=== PATIENT | female | born 1965 | race African-American/Black ===

== ENCOUNTER 2016-06-16 13:44 | Emergency (ER) | payer SELFPAY ==
[~2016-06-16] VITALS: Ht 162.6 cm; Wt 92.7 kg
[~2016-06-16 13:44] MED LIST: AMLO5TAB2 PO; LISI-519 PO; MECL-62 PO
[2016-06-16 13:46] VITALS: BP 145/94; PULSE 98; RESP 20; TEMP 98.4; O2SAT 96
--- NOTE | 2016-06-16 14:28 | PD ---
HPI Chief Complaint: Medication Refill Request Time Seen by Provider: 14:27 Travel History International Travel<30 days: No Contact w/Intl Traveler<30days: No Traveled to known affect area: No History of Present Illness HPI 51-year-old female with a history of hypertension presents to the emergency department requesting a medication refill. Patient states that she has been taking amlodipine and lisinopril for several years now for her high blood pressure and it has controlled her blood pressure well. States that she does not currently have health insurance and does not have a primary care provider. She is here requesting a refill of these medications. She denies any medical complaints. She denies any chest pain, shortness of breath, lightheadedness, dizziness, nausea, vomiting. Denies , she status post hysterectomy. No other complaints. PFSH Past Medical History Anemia: Yes Blood Disorders: No Cancer: No Cardiovascular Problems: Yes Diabetes: No Diminished Hearing: No Endocrine: No Gastrointestinal Disorders: No GERD: Yes Genitourinary: No Hypertension: Yes Immune Disorder: No Implanted Vascular Access Dvce: No Musculoskeletal: No Neurologic: No Psychiatric: No Reproductive: Yes (FIBROIDS) Respiratory: No Immunizations Current: No ?: Not : 0 Past Surgical History Abdominal Surgery: No AICD: No Arteriovenous Shunt: No Cardiac Surgery: No Cholecystectomy: Yes Gynecologic Surgery: Yes (FIBROID UTERUS) Hysterectomy: Yes Insulin Pump: No Joint Replacement: No Pacemaker: No Other Surgery: Yes Social History Alcohol Use: Yes (OCCASSIONALLY) Tobacco Use: Yes (1- 2 CIG PER DAY ) Substance Use: No (DENIES ) Allergies-Medications (Allergen,Severity, Reaction): Coded Allergies: No Known Allergies (Verified , 03/19/16) Reported Meds & Prescriptions Reported Meds & Active Scripts Active Lisinopril 5 Mg Tab 5 Mg PO DAILY Amlodipine (Amlodipine Besylate) 5 Mg Tab 5 Mg PO DAILY Amlodipine (Amlodipine Besylate) 5 Mg Tab 5 Mg PO DAILY Lisinopril 5 Mg Tab 5 Mg PO DAILY Reported Meclizine (Meclizine HCl) 25 Mg Tab 25 Mg PO TID PRN Lisinopril 5 Mg Tab 5 Mg PO DAILY Amlodipine (Amlodipine Besylate) 5 Mg Tab 5 Mg PO DAILY Review of Systems Except as stated in HPI: all other systems reviewed are Neg Physical Exam Narrative GENERAL: Well-nourished and well-developed pleasant female patient in no acute distress who is nontoxic appearing. SKIN: Warm and dry. HEAD: Normocephalic and atraumatic. EYES: No injection, drainage, or hyphema noted. PERRLA. EOMI. ENT: No nasal drainage noted. Oropharynx is clear. NECK: Supple and the trachea is midline. CARDIOVASCULAR: Regular rate and rhythm. RESPIRATORY: Breath sounds are equal bilaterally with no accessory muscle use, wheezing, rhonchi, or crackles. MUSCULOSKELETAL: No obvious deformities, swelling, cyanosis, or ecchymosis is present throughout the upper and lower extremities. NEUROLOGICAL: Awake, alert, and oriented. Normal speech and gait. Cranial nerves are grossly intact. Data Data Last Documented VS Vital Signs Date Time Temp Pulse Resp B/P Pulse Ox O2 Delivery O2 Flow Rate FiO2 06/16/16 13:46 98.4 98 20 145/94 96 Room Air MDM Medical Decision Making Medical Screen Exam Complete: Yes Emergency Medical Condition: Yes Differential Diagnosis Medication refill versus hypertension versus medical clearance Narrative Course 51-year-old female presents to the emergency department requesting medication refills of amlodipine and lisinopril. Patient is afebrile, vital signs are stable. She has only 2 days left of her medications. She takes lisinopril 5 mg daily and amlodipine 5 mg daily. I'll give her a month's worth of her blood pressure medications. Discussed and given outpatient resources for her to get a primary care physician. Patient verbalizes understanding and agreement with treatment plan. Diagnosis Primary Impression: Hypertension Qualified Code: I10 - Essential hypertension Additional Impression: Medication refill Referrals: [facility] Patient Instructions: General Instructions, Hypertension (ED), Medication Refill, ED Additional Instructions: Take medications as prescribed. Follow-up with your Primary Care Physician. Return to the ED for any acute worsening of symptoms. Med/Other Pt SpecificInfo: Prescription(s) given Scripts Lisinopril 5 Mg Tab5 Mg PO DAILY #30 TAB Ref 0 Prov:Diane Riojas MD 06/16/16 Amlodipine 5 Mg Tab5 Mg PO DAILY #30 TAB Ref 0 Prov:Diane Riojas MD 06/16/16 Disposition: 01 DISCHARGE HOME Condition: Stable Sofia Burden Jun 16, 2016 14:28
[2016-06-16] MEDS ORDERED: AMLO5TAB2 PO (14:30)
[2016-06-16] MEDS ORDERED: LISI-519 PO (14:30)
== END 2016-06-16 14:56 | disposition home or self-care (01) ==
LOC: NEPB 13:44
DX: I10 Essential (primary) hypertension (principal); Z76.0 Encounter for issue of repeat prescription; Z72.0 Tobacco use; Z86.2 Personal history of diseases of the blood and blood-forming organs and certain disorders involving the immune mechanism; Z86.79 Personal history of other diseases of the circulatory system; Z87.19 Personal history of other diseases of the digestive system
CPT/HCPCS: 99281

== ENCOUNTER 2016-11-07 11:39 | Inpatient (IN) | payer SELFPAY ==
[2016-11-07] VITALS (8 sets, daily range): BP systolic 126–163; BP diastolic 85–98; PULSE 65–87; RESP 12–20; TEMP 97.3–98.3; O2SAT 96–100
[~2016-11-07] VITALS: Ht 167.6 cm; Wt 92.5 kg
[2016-11-07] MEDS ORDERED: SODIUM CHLORIDE 0.9% FLUSH 10 ML FLUSH IVF PRN (12:00)
[2016-11-07 12:08] LABS: AUTOMATED NEUTROPHIL # 3.2 TH/MM3 (1.8-7.7); BASOPHIL % 0.4 % (0.0-2.0); EOSINOPHIL # 0.2 TH/MM3 (0-0.4); EOSINOPHIL % 3.9 % (0.0-4.0); HEMATOCRIT 37.2 % (35.0-46.0); HEMO FLAGS DIFF FINAL; LYMPH % 35.1 % (9.0-44.0); LYMPHOCYTE # 2.1 TH/MM3 (1.0-4.8); MEAN CELL VOLUME 81.2 FL (80.0-100.0); MEAN CORPUSCULAR HEMOGLOBIN 26.9 PG (27.0-34.0); MEAN CORPUSCULAR HGB CONC 33.2 % (32.0-36.0); MONO % 7.5 % (0.0-8.0); NEUT % 53.1 % (16.0-70.0); PLATELET COUNT 253 TH/MM3 (150-450); RED BLOOD COUNT 4.59 MIL/MM3 (4.00-5.30)
--- NOTE | 2016-11-07 12:12 | RADRPT ---
EXAM DATE/TIME: 11/07/2016 11:46 [facility] COMPARISON: CHEST SINGLE AP, August 29, 2013, 21:20. INDICATIONS : Chest pain today. MEDICAL HISTORY : Hypertension. SURGICAL HISTORY : None. ENCOUNTER: Initial ACUITY: 1 day PAIN SCORE: 7/10 LOCATION: Bilateral chest FINDINGS: Portable AP view of the chest demonstrates a normal-sized cardiac silhouette. No effusion, consolidat ion, or pneumothorax is visualized. The bones and soft tissues demonstrate no acute abnormality. EKG lines overlie the patient. CONCLUSION: No acute cardiopulmonary abnormality is identified. Doug Rivas MD on November 07, 2016 at 12:09 Board Certified Radiologist. This report was verified electronically.
[2016-11-07 12:17] LABS: APTT (PATIENT) 25.2 SEC (24.3-30.1); INTERNATIONAL NORMALIZED RATIO 0.9 RATIO
[2016-11-07 12:40] LABS: ANION GAP 7 MEQ/L (5-15); BICARBONATE 21.6 MEQ/L (21.0-32.0); BLOOD UREA NITROGEN 10 MG/DL (7-18); CHLORIDE 120 MEQ/L (98-107); CREATINE KINASE 61 U/L (26-192); GLOMERULAR FILTRATION RATE 211 ML/MIN (>89); MAGNESIUM 1.3 MG/DL (1.5-2.5); SODIUM (NA) 149 MEQ/L (136-145)
[2016-11-07] MEDS ORDERED: MAGNESIUM SULFATE 1 GM PREMIX 100 ML IV ONE (13:00)
[2016-11-07 13:02] LABS: POTASSIUM 2.3 MEQ/L (3.5-5.1)
[2016-11-07] MEDS ORDERED: POTASSIUM CHLOR 20 MEQ PREMIX 100 ML IV SCH (13:15)
[2016-11-07] MEDS ORDERED: POTASSIUM CHLORIDE 10 MEQ CONTROLLED RELEASE TAB PO ONE (13:15)
--- NOTE | 2016-11-07 13:56 | PD ---
HPI Chief Complaint: Chest Pain Time Seen by Provider: 11:48 Travel History International Travel<30 days: No Contact w/Intl Traveler<30days: No Traveled to known affect area: No History of Present Illness HPI Patient is a 51-year-old female with history of hypertension and tobacco abuse, who presents to emergency room with complaints of chest pain. Patient reports that her chest pain began around 6 AM this morning while she was taking a shower. She reports that chest pain was located to her right breast, reports that pain with a sharp and stabbing sensation with associated diaphoresis. She reports no shortness of breath or nausea or vomiting with her symptoms. Patient was at work when her symptoms worsened, EMS arrived on scene, she was given 1 sublingual nitroglycerin which took away her pain. Patient was also given 160 mg of aspirin. Patient is currently is pain-free at this time with no complaints PFSH Past Medical History Anemia: Yes Blood Disorders: No Cancer: No Cardiovascular Problems: Yes Diabetes: No Diminished Hearing: No Endocrine: No Gastrointestinal Disorders: No GERD: Yes Genitourinary: No Hypertension: Yes Immune Disorder: No Implanted Vascular Access Dvce: No Musculoskeletal: No Neurologic: No Psychiatric: No Reproductive: Yes (FIBROIDS) Respiratory: No Immunizations Current: No Tetanus Vaccination: > 5 Years Influenza Vaccination: No ?: Not : 0 Para: 0 Miscarriage: 0 : 0 Past Surgical History Abdominal Surgery: No AICD: No Arteriovenous Shunt: No Cardiac Surgery: No Cholecystectomy: Yes Gynecologic Surgery: Yes (FIBROID UTERUS) Hysterectomy: Yes Insulin Pump: No Joint Replacement: No Pacemaker: No Other Surgery: Yes Social History Alcohol Use: Yes (OCCASSIONALLY) Tobacco Use: Yes (1- 2 CIG PER DAY ) Substance Use: No Allergies-Medications (Allergen,Severity, Reaction): Coded Allergies: No Known Allergies (Verified , 11/07/16) Reported Meds & Prescriptions Reported Meds & Active Scripts Active Reported Lisinopril 5 Mg Tab 5 Mg PO DAILY Review of Systems General / Constitutional: No: Fever Eyes: No: Visual changes HENT: No: Headaches Cardiovascular: Positive: Chest Pain or Discomfort Respiratory: Positive: Shortness of Breath Gastrointestinal: No: Abdominal Pain Genitourinary: No: Dysuria Musculoskeletal: No: Pain Skin: No Rash Neurologic: No: Weakness Psychiatric: No: Depression Endocrine: No: Polydipsia Hematologic/Lymphatic: No: Easy Bruising Physical Exam Narrative GENERAL: nad, nontoxic SKIN: Focused skin assessment warm/dry. HEAD: Atraumatic. Normocephalic. EYES: Pupils equal and round. No scleral icterus. No injection or drainage. ENT: No nasal bleeding or discharge. Mucous membranes pink and moist. NECK: Trachea midline. No JVD. CARDIOVASCULAR: Regular rate and rhythm. No murmur appreciated. RESPIRATORY: No accessory muscle use. Clear to auscultation. Breath sounds equal bilaterally. GASTROINTESTINAL: Abdomen soft, non-tender, nondistended. Hepatic and splenic margins not palpable. MUSCULOSKELETAL: No obvious deformities. No clubbing. No cyanosis. No edema. NEUROLOGICAL: Awake and alert. No obvious cranial nerve deficits. Motor grossly within normal limits. Normal speech. PSYCHIATRIC: Appropriate mood and affect; insight and judgment normal. Data Data Last Documented VS Vital Signs Date Time Temp Pulse Resp B/P Pulse Ox O2 Delivery O2 Flow Rate FiO2 11/07/16 11:59 20 96 Room Air 11/07/16 11:42 98.3 87 163/95 Orders Electrocardiogram (11/07/16 11:49) Basic Metabolic Panel (Bmp) (11/07/16 11:49) Ckmb (Isoenzyme) Profile (11/07/16 11:49) Complete Blood Count With Diff (11/07/16 11:49) Magnesium (Mg) (11/07/16 11:49) Prothrombin Time / Inr (Pt) (11/07/16 11:49) Act Partial Throm Time (Ptt) (11/07/16 11:49) Troponin I (11/07/16 11:49) Chest, Single Ap (11/07/16 11:49) Ecg Monitoring (11/07/16 11:49) Iv Access Insert/Monitor (11/07/16 11:49) Oximetry (11/07/16 11:49) Sodium Chloride 0.9% Flush (Ns Flush) (11/07/16 12:00) Ed Urine Pregnancytest Poc (11/07/16 11:49) Protein Corrected Calcium(Pcc) (11/07/16 11:55) Magnesium Sulfate 1 Gm Premix (Magnesium (11/07/16 13:00) Potassium Chloride (Kcl) (11/07/16 13:15) Potassium Chlor 20 Meq Premix (Kcl 20 Me (11/07/16 13:15) Basic Metabolic Panel (Bmp) (11/07/16 13:18) Admit Order (Ed Use Only) (11/07/16 13:57) Labs Laboratory Tests Test 11/07/16 11/07/16 11:55 13:29 White Blood Count 6.0 TH/MM3 Red Blood Count 4.59 MIL/MM3 Hemoglobin 12.3 GM/DL Hematocrit 37.2 % Mean Corpuscular Volume 81.2 FL Mean Corpuscular Hemoglobin 26.9 PG Mean Corpuscular Hemoglobin 33.2 % Concent Red Cell Distribution Width 15.0 % Platelet Count 253 TH/MM3 Mean Platelet Volume 8.9 FL Neutrophils (%) (Auto) 53.1 % Lymphocytes (%) (Auto) 35.1 % Monocytes (%) (Auto) 7.5 % Eosinophils (%) (Auto) 3.9 % Basophils (%) (Auto) 0.4 % Neutrophils # (Auto) 3.2 TH/MM3 Lymphocytes # (Auto) 2.1 TH/MM3 Monocytes # (Auto) 0.5 TH/MM3 Eosinophils # (Auto) 0.2 TH/MM3 Basophils # (Auto) 0.0 TH/MM3 CBC Comment DIFF FINAL Differential Comment Prothrombin Time 10.0 SEC Prothromb Time International 0.9 RATIO Ratio Activated Partial 25.2 SEC Thromboplast Time Sodium Level 149 MEQ/L 139 MEQ/L Potassium Level 2.3 MEQ/L 3.4 MEQ/L Chloride Level 120 MEQ/L 106 MEQ/L Carbon Dioxide Level 21.6 MEQ/L 24.9 MEQ/L Anion Gap 7 MEQ/L 8 MEQ/L Blood Urea Nitrogen 10 MG/DL 13 MG/DL Creatinine 0.39 MG/DL 0.68 MG/DL Estimat Glomerular Filtration 211 ML/MIN 111 ML/MIN Rate Random Glucose 85 MG/DL 99 MG/DL Calcium Level 5.9 MG/DL 9.1 MG/DL Protein Corrected Calcium 7.0 MG/DL Magnesium Level 1.3 MG/DL Total Creatine Kinase 61 U/L Troponin I LESS THAN 0.02 NG/ML Total Protein 4.6 GM/DL MDM Medical Decision Making Medical Screen Exam Complete: Yes Emergency Medical Condition: Yes Interpretation(s) EKG [id number]: NSR at 86bpm, qt/qtc: 358/402, t wave inversion I, II, aVL, V3-V6, EKG similar when compared to EKG from 03/19/2016 Vital Signs Date Time Temp Pulse Resp B/P Pulse Ox O2 Delivery O2 Flow Rate FiO2 11/07/16 11:59 20 96 Room Air 11/07/16 11:42 98.3 87 20 163/95 96 Differential Diagnosis ACS, arrhythmia, electrolyte abnormality, muscle skeletal pain Narrative Course Patient is a 51-year-old female who was brought to emergency room by EMS with complaints of chest pain. Patient was having right-sided chest pain which is sharp and stabbing in nature, nonradiating, with associated diaphoresis which began around 6am today. Patient was chest pain-free after 1 sublingual nitroglycerin given by EMS.. Patient with no chest pain at this time. EKG, lab work, x-ray of the chest ordered. Patient was placed on a general ophthalmologist upon arrival to emergency room. Laboratory Tests Test 11/07/16 11:55 White Blood Count 6.0 TH/MM3 (4.0-11.0) Red Blood Count 4.59 MIL/MM3 (4.00-5.30) Hemoglobin 12.3 GM/DL (11.6-15.3) Hematocrit 37.2 % (35.0-46.0) Mean Corpuscular Volume 81.2 FL (80.0-100.0) Mean Corpuscular Hemoglobin 26.9 PG (27.0-34.0) Mean Corpuscular Hemoglobin 33.2 % Concent (32.0-36.0) Red Cell Distribution Width 15.0 % (11.6-17.2) Platelet Count 253 TH/MM3 (150-450) Mean Platelet Volume 8.9 FL (7.0-11.0) Neutrophils (%) (Auto) 53.1 % (16.0-70.0) Lymphocytes (%) (Auto) 35.1 % (9.0-44.0) Monocytes (%) (Auto) 7.5 % (0.0-8.0) Eosinophils (%) (Auto) 3.9 % (0.0-4.0) Basophils (%) (Auto) 0.4 % (0.0-2.0) Neutrophils # (Auto) 3.2 TH/MM3 (1.8-7.7) Lymphocytes # (Auto) 2.1 TH/MM3 (1.0-4.8) Monocytes # (Auto) 0.5 TH/MM3 (0-0.9) Eosinophils # (Auto) 0.2 TH/MM3 (0-0.4) Basophils # (Auto) 0.0 TH/MM3 (0-0.2) CBC Comment DIFF FINAL Differential Comment Prothrombin Time 10.0 SEC (9.8-11.6) Prothromb Time International 0.9 RATIO Ratio Activated Partial 25.2 SEC Thromboplast Time (24.3-30.1) Sodium Level 149 MEQ/L (136-145) Potassium Level 2.3 MEQ/L (3.5-5.1) Chloride Level 120 MEQ/L (98-107) Carbon Dioxide Level 21.6 MEQ/L (21.0-32.0) Anion Gap 7 MEQ/L (5-15) Blood Urea Nitrogen 10 MG/DL (7-18) Creatinine 0.39 MG/DL (0.50-1.00) Estimat Glomerular Filtration 211 ML/MIN Rate (>89) Random Glucose 85 MG/DL (74-106) Calcium Level 5.9 MG/DL (8.5-10.1) Protein Corrected Calcium 7.0 MG/DL (8.5-10.1) Magnesium Level 1.3 MG/DL (1.5-2.5) Total Creatine Kinase 61 U/L (26-192) Troponin I LESS THAN 0.02 NG/ML (0.02-0.05) Total Protein 4.6 GM/DL (6.4-8.2) Last Impressions Chest X-Ray 11/07/16 1149 Signed Impressions: Service Date/Time: Monday, November 07, 2016 11:46 - CONCLUSION: No acute cardiopulmonary abnormality is identified. Doug Rivas MD All labs and all studies reviewed, patient currently chest pain-free at this time, plan to obs to chest pain unit. repeat bmp: potassium 3.4, calcium 9.1 - lab called as initial bmp showed potassium 2.3 and calcium 5.9 which is most likely a lab error Patient was initially admitted to chest pain unit - patient unable to be admitted to chest pain unit given her initial low potassium of 2.3. Will admit to [facility] for obs case reviewed with Dr Nath who accepts pt to service Diagnosis Primary Impression: Chest pain Qualified Code: R07.9 - Chest pain, unspecified type Admitting Information Admitting Physician Requests: Observation Sridevi Webb DO Nov 07, 2016 13:56
[2016-11-07 14:15] LABS: BICARBONATE 24.9 MEQ/L (21.0-32.0); POTASSIUM 3.4 MEQ/L (3.5-5.1)
[2016-11-07] MEDS ORDERED: NITROGLYCERIN 0.3 MG SL 100 TABS/BTL SL PRN (15:15)
[2016-11-07] MEDS ORDERED: CARVEDILOL 3.125 MG TAB PO ONE (15:15)
[2016-11-07] MEDS ORDERED: SODIUM CHLORIDE 0.9% FLUSH 10 ML FLUSH IV FLUSH PRN (15:15)
[2016-11-07 17:10] LABS: CREATINE KINASE 82 U/L (26-192)
[2016-11-07] MEDS: CARVEDILOL 3.125 MG TAB PO SCH (19:54)
[2016-11-07] MEDS: SODIUM CHLORIDE 0.9% FLUSH 10 ML FLUSH IV FLUSH SCH (19:55)
--- NOTE | 2016-11-07 23:57 | HHI.HP ---
HPI Service [facility] Primary Care Physician No Primary Care Physician Admission Diagnosis Chest pain Diagnoses: Travel History International Travel<30 Days: No Contact w/Intl Traveler <30 Da: No Traveled to Known Affected Are: No History of Present Illness patient seen today around 4 PM. 51-year-old female with history of hypertension,, uterine fibroids, chronic smoking, who presents with acute onset sharp, intermittent, nonradiating right- sided chest pain. She does report some diaphoresis which has resolved. She denies any nausea or vomiting. Denies any shortness of breath. Review of Systems performed and negative except for HPI and past medical history. Past Family Social History Past Medical History Hypertension Uterine fibroids Reports GERD but not on medication. Past Surgical History Hysterectomy Fibroid tumor removal. Bilateral hand surgery. Reported Medications lisinopril 20 mg once daily. Allergies: Coded Allergies: No Known Allergies (Verified , 11/07/16) Family History Mother from colon cancer at age 54. Father estranged Social History Patient has smoked one fourth pack of cigarettes per day the past 20 years. Denies any alcohol. Denies any illicit drugs. Physical Exam Vital Signs Vital Signs Date Time Temp Pulse Resp B/P Pulse Ox O2 Delivery O2 Flow Rate FiO2 11/07/16 20:48 76 11/07/16 19:29 97.9 66 18 126/85 100 11/07/16 18:34 65 11/07/16 16:39 97.3 69 12 147/95 99 11/07/16 15:55 98 21 11/07/16 14:00 65 18 151/98 96 Room Air 11/07/16 11:59 20 96 Room Air 11/07/16 11:42 98.3 87 20 163/95 96 Physical Exam GENERAL: This is a well-nourished, well-developed patient, in no apparent distress.alert and oriented 3. SKIN: No rashes, ecchymoses or lesions. Cool and dry. HEAD: Atraumatic. Normocephalic. No temporal or scalp tenderness. EYES: Pupils equal round and reactive. Extraocular motions intact. No scleral icterus. No injection or drainage. ENT: Nose without bleeding, purulent drainage or septal hematoma. Throat without erythema, tonsillar hypertrophy or exudate. Uvula midline. Airway patent. NECK: Trachea midline. No JVD or lymphadenopathy. Supple, nontender, no meningeal signs. CARDIOVASCULAR: Regular rate and rhythm without murmurs, gallops, or rubs. RESPIRATORY: Clear to auscultation. Breath sounds equal bilaterally. No wheezes , rales, or rhonchi. GASTROINTESTINAL: Abdomen soft, non-tender, nondistended. No hepato-splenomegaly , or palpable masses. No guarding. MUSCULOSKELETAL: Extremities without clubbing, cyanosis, or edema. No joint tenderness, effusion, or edema noted. No calf tenderness. Negative Homans sign bilaterally. NEUROLOGICAL: Awake and alert. Cranial nerves II through XII intact. Motor and sensory grossly within normal limits. Five out of 5 muscle strength in all muscle groups. Normal speech. Laboratory Laboratory Tests Test 11/07/16 11/07/16 11/07/16 11:55 13:29 16:00 White Blood Count 6.0 Red Blood Count 4.59 Hemoglobin 12.3 Hematocrit 37.2 Mean Corpuscular Volume 81.2 Mean Corpuscular Hemoglobin 26.9 Mean Corpuscular Hemoglobin 33.2 Concent Red Cell Distribution Width 15.0 Platelet Count 253 Mean Platelet Volume 8.9 Neutrophils (%) (Auto) 53.1 Lymphocytes (%) (Auto) 35.1 Monocytes (%) (Auto) 7.5 Eosinophils (%) (Auto) 3.9 Basophils (%) (Auto) 0.4 Neutrophils # (Auto) 3.2 Lymphocytes # (Auto) 2.1 Monocytes # (Auto) 0.5 Eosinophils # (Auto) 0.2 Basophils # (Auto) 0.0 CBC Comment DIFF FINAL Differential Comment Prothrombin Time 10.0 Prothromb Time International 0.9 Ratio Activated Partial 25.2 Thromboplast Time Sodium Level 149 139 Potassium Level 2.3 3.4 Chloride Level 120 106 Carbon Dioxide Level 21.6 24.9 Anion Gap 7 8 Blood Urea Nitrogen 10 13 Creatinine 0.39 0.68 Estimat Glomerular Filtration 211 111 Rate Random Glucose 85 99 Calcium Level 5.9 9.1 Protein Corrected Calcium 7.0 Magnesium Level 1.3 Total Creatine Kinase 61 82 Troponin I LESS THAN 0.02 LESS THAN 0.02 Total Protein 4.6 Result Diagram: 11/07/16 1155 11/07/16 1329 Imaging Last Impressions Chest X-Ray 11/07/16 1149 Signed Impressions: Service Date/Time: Monday, November 07, 2016 11:46 - CONCLUSION: No acute cardiopulmonary abnormality is identified. Doug Rivas MD Assessment and Plan Assessment and Plan //Acute chest pain. Atypical but with risk factors of smoking, hypertension. -Troponin negative. Chest x-ray negative on admission. -EKG indicates left ventricular hypertrophy Trend EKGs and troponins. -Echocardiogram, NPO midnight, stress test in the morning. //Hypertension. Blood pressure in the 160 systolic. Initially tachycardic in the 80s, so Coreg was added we'll consider adding back home lisinopril tomorrow. //Family history of colon cancer in mother age 54. Patient advised to follow- up with primary care to obtain screening colonoscopy due to her increased risk of colon cancer. Patient conveys understanding. //Tobacco abuse. Cessation counseling provided. Cessation strongly advised. //Hypokalemia. Discussed extensively with ER physician. Repeat after 2 hours as nearly normalized. This is certainly a lab error. Suspect contamination with normal saline from IV. Follow-up tomorrow. //Prophylaxis. SCDs. Code Status full code Discussed Condition With patient, nurse, ED physician. Cristhian Nath MD Nov 07, 2016 23:57
[2016-11-08] VITALS (9 sets, daily range): BP systolic 116–150; BP diastolic 75–99; PULSE 63–69; RESP 16–20; TEMP 97.2–98.6; O2SAT 97–100
[2016-11-08 00:16] LABS: CREATINE KINASE 78 U/L (26-192)
[2016-11-08 07:30] LABS: BASOPHIL % 0.8 % (0.0-2.0); EOSINOPHIL # 0.2 TH/MM3 (0-0.4); EOSINOPHIL % 4.3 % (0.0-4.0); HEMATOCRIT 35.8 % (35.0-46.0); HEMO FLAGS DIFF FINAL; LYMPH % 42.9 % (9.0-44.0); MEAN CELL VOLUME 81.6 FL (80.0-100.0); MEAN CORPUSCULAR HEMOGLOBIN 27.3 PG (27.0-34.0); MEAN CORPUSCULAR HGB CONC 33.4 % (32.0-36.0); MONO % 8.2 % (0.0-8.0); NEUT % 43.8 % (16.0-70.0); PLATELET COUNT 261 TH/MM3 (150-450); RED BLOOD COUNT 4.38 MIL/MM3 (4.00-5.30); RED CELL DISTRIBUTION WIDTH 14.9 % (11.6-17.2); WHITE BLOOD COUNT 4.6 TH/MM3 (4.0-11.0)
--- NOTE | 2016-11-08 07:55 | HHI.PR ---
Subjective Remarks Follow-up for chest pain. Patient states that when she was getting ready for work yesterday morning she began having sharp right-sided chest pain. She states the pain came and went lasting for a few minutes of the time all day. The pain did not radiate. She denies any associated shortness of breath, nausea , diaphoresis. She states the pain was relieved with nitroglycerin and has not recurred overnight. She does state that she was sick to her stomach last week and had associated lower extremity weakness. She denies any vomiting or diarrhea. She denies any exacerbation of the pain with food. Objective Vitals Vital Signs Date Time Temp Pulse Resp B/P Pulse Ox O2 Delivery O2 Flow Rate FiO2 11/08/16 07:12 97.6 65 18 134/92 11/08/16 05:00 98.6 66 18 132/79 98 11/08/16 04:19 100 21 11/08/16 00:23 69 11/08/16 00:06 97.8 68 18 116/75 98 11/07/16 20:48 76 11/07/16 19:29 97.9 66 18 126/85 100 11/07/16 18:34 65 11/07/16 16:39 97.3 69 12 147/95 99 11/07/16 15:55 98 21 11/07/16 14:00 65 18 151/98 96 Room Air 11/07/16 11:59 20 96 Room Air 11/07/16 11:42 98.3 87 20 163/95 96 Result Diagram: 11/08/16 0607 11/07/16 1329 Imaging Last Impressions Chest X-Ray 11/07/16 1149 Signed Impressions: Service Date/Time: Monday, November 07, 2016 11:46 - CONCLUSION: No acute cardiopulmonary abnormality is identified. Doug Rivas MD Objective Remarks GENERAL: Well-developed well-nourished. In no acute distress. SKIN: Warm and dry. No lesions noted. HEENT: Normocephalic. Pupils equal and round. Mucous membranes pink and moist. CARDIOVASCULAR: Regular rate and rhythm. No murmur appreciated. No chest wall TTP. RESPIRATORY: No accessory muscle use. Clear to auscultation. Breath sounds equal bilaterally. GASTROINTESTINAL: Abdomen soft, nondistended. Significant epigastric and right upper quadrant TTP. Positive Santiago sign. MUSCULOSKELETAL: No obvious deformities. No clubbing or cyanosis. No edema. NEUROLOGICAL: Awake and alert. No focal neurological deficits. Moves upper and lower extremities spontaneously. Normal speech. PSYCHIATRIC: Appropriate mood and affect; insight and judgment normal. A/P Assessment and Plan //Acute chest pain. Atypical but with risk factors of smoking, hypertension. -Serial Troponin negative. Chest x-ray negative on admission. -EKG indicates left ventricular hypertrophy -Cardiology consulted, plan for Echocardiogram, stress test -Started on aspirin and beta hao -Lipid profile with elevated LDL, consider statin when LFTs improve //Abdominal pain. Right upper quadrant and epigastric tenderness. With atypical chest pain as above, consider cholecystitis or GERD. -Gallbladder ultrasound. Further specialist (GI vs GS) consult if indicated. -PPI //Hypertension. Blood pressure currently controlled. Lisinopril changed carvedilol due to borderline tachycardia. Consider adding back home lisinopril pending stress test results. //Family history of colon cancer in mother age 54. Patient advised to follow- up with primary care to obtain screening colonoscopy due to her increased risk of colon cancer. Patient conveys understanding. //Tobacco abuse. Cessation counseling. //Hypokalemia. Repeat potassium after 2 hours was nearly normalized. This is certainly a lab error. Suspect contamination with normal saline from IV. Follow -up BMP today pending. //Prophylaxis. SCDs. Discharge Planning Follow-up results of cardiac workup and cardiology recommendations. Follow-up gallbladder ultrasound. 1500 stress test shows moderate redistribution at the apex. Gallbladder ultrasound showed old malfunctioning bile duct stent. Discussed with Dr. Bailey, cardiology is recommending cardiac catheterization in the morning. Discuss with gastroenterology, ERCP for stent removal when cleared by cardiology. Nothing by mouth after midnight per cardiology. Full liquids per gastroenterology. Plan of care discussed with the patient and her brother at bedside, agreeable to proceed, all questions answered to the best of my ability. Admit to inpatient. Mirza Elizondo Nov 08, 2016 07:55
[2016-11-08 07:56] LABS: BICARBONATE 30.3 MEQ/L (21.0-32.0); MAGNESIUM 2.4 MG/DL (1.5-2.5); POTASSIUM 3.7 MEQ/L (3.5-5.1)
[2016-11-08 07:59] LABS: HDL CHOLESTEROL 85.1 MG/DL (40.0-60.0)
[2016-11-08] MEDS: ASPIRIN EC 81 MG TABEC PO SCH (08:44)
[2016-11-08] MEDS: SODIUM CHLORIDE 0.9% FLUSH 10 ML FLUSH IV FLUSH SCH ×2 (08:44→20:29)
[2016-11-08] MEDS: PANTOPRAZOLE SOD 40 MG DELAYED RELEASE TAB PO SCH (08:44)
[2016-11-08] MEDS: CARVEDILOL 3.125 MG TAB PO SCH ×2 (08:44→20:24)
--- NOTE | 2016-11-08 09:22 | RADRPT ---
EXAM DATE/TIME: 11/08/2016 08:20 [facility] COMPARISON: GI LAB ERCP, September 29, 2009, 13:04. INDICATIONS : Abdominal pain. MEDICAL HISTORY : Hypertension. Uterine fibroids. SURGICAL HISTORY : Hysterectomy. Bilateral hand surgery. Fibroid removal. ENCOUNTER: Subsequent ACUITY: > 1 year PAIN SCORE: 8/10 LOCATION: Right upper quadrant MEASUREMENTS: LIVER: 13.4 cm length COMMON DUCT: 11 mm RIGHT KIDNEY: 9.9 x 4.2 x 4.7 cm FINDINGS: LIVER: Mild diffuse heterogeneous echotexture with slight intrahepatic ductal dilatation. COMMON DUCT: There is a stent in the common bile duct. This is consistent with remote ERCP report although patient reportedly denies this history. There is prominence of the extrahepatic duct measur ing up to 11 mm. GALLBLADDER: Gallbladder is not visualized and patient denies history of cholecystectomy. Co incidentally, gallbladder was also not visualized in remote ERCP report. PANCREAS: Largely obscured by bowel gas but appears unremarkable in its visualized portions. RIGHT KIDNEY: No evidence of hydronephrosis, stone, or mass. CONCLUSION: 1. Common bile duct stent in place consistent with GI ERCP report of 2009 although patient denies thi s history. There is associated mild intrahepatic and common bile duct distention to 11 mm. Although t his may be chronic in etiology, stent malfunction should be considered. 2. Gallbladder is not visualized. This is also consistent with ERCP report of 2009 although patient d enies history of cholecystectomy. In the absence of cholecystectomy, differential considerations incl ude a contracted small gallbladder versus gallbladder agenesis which is very rare. Rolf Ren MD on November 08, 2016 at 9:11 Board Certified Radiologist. This report was verified electronically.
[2016-11-08] MEDS ORDERED: REGADENOSON INJ 0.4 MG/5 ML SYR ONE (10:05)
--- NOTE | 2016-11-08 10:59 | MB ---
cc: ESTEBAN VELARDE DO DATE OF CONSULTATION 11/07/2016 REASON FOR CONSULTATION Chest pain HISTORY OF PRESENT ILLNESS Vivian Osorio is a pleasant 51-year-old female who presented to [facility] on November 07, 2016 due to chest pain. She states that the pain started around 06:00 a.m. this morning. She went on to take a shower and reports that she still had some chest pain so her brother brought her into the emergency room. She states that the chest pain is located over her right breast and is sharp and stabbing in nature. She denies shortness of breath, nausea or vomiting with the symptoms. She states that she has not had these symptoms first. She did state that while she was at work, the symptoms got slightly worse. PAST MEDICAL HISTORY 1. Gastroesophageal reflux disease 2. Hypertension 3. Fibroids PAST SURGICAL HISTORY 1. Cholecystectomy 2. Hysterectomy ALLERGIES NO KNOWN DRUG ALLERGIES. MEDICATIONS Lisinopril 5 mg daily FAMILY HISTORY Denies premature coronary artery disease or sudden cardiac within the family. SOCIAL HISTORY The patient occasionally drinks. Denies drug abuse. Does smoke one to two cigarettes per day. REVIEW OF SYSTEMS 14-systems were reviewed including osteopathic pertinent positives and negatives as above, otherwise negative. PHYSICAL EXAMINATION VITAL SIGNS: Temperature 97.9, heart rate 76, blood pressure 126/85, respirations 18, pulse ox 100% on room air. GENERAL: The patient appears well in no acute distress, alert, awake and oriented x3. HEAD, EYES, EARS, NOSE, AND THROAT: Extraocular muscles intact. Mucous membranes moist. NECK: Supple. JVD at 45 degrees. No carotid bruits heard bilaterally. Carotid upstroke is brisk in nature. HEART: Regular rate and rhythm. Positive first and second heart sounds with no murmurs, gallops or rubs. PMI is nondisplaced. LUNGS: Clear to auscultation bilaterally. No wheezes, rales or rhonchi. ABDOMEN: Soft, nontender and nondistended. No organomegaly noted. EXTREMITIES: Show no clubbing, cyanosis or edema. Femoral and distal pulses intact bilaterally. NEUROLOGIC: No focal deficits. SKIN: Warm, dry and intact. OSTEOPATHIC: No kyphoscoliosis, lordosis or paraspinal tender points. LABORATORY FINDINGS Hemoglobin 12.3, hematocrit 37.2, platelets 253. Potassium 3.4, BUN 13, creatinine 0.68. Troponin negative x2. Electrocardiogram (November 07, 2016 at 1819) sinus rhythm, LVH with secondary ST-T wave changes. No significant change from March 19, 2016. IMPRESSIONS 1. Atypical chest pain. 2. Abnormal EKG with ST-T wave changes most likely due to LVH. 3. History of hypertension. 4. History of tobacco abuse. RECOMMENDATIONS 1. Ms. Osorio presented with atypical chest pain and I do not feel that this is most likely due to coronary insufficiency. With her extremely abnormal EKG and co-morbidities, I feel that coronary insufficiency should be ruled out with a pharmacologic nuclear stress test. 2. We will check a 2-D echo to look at her overall left ventricular function, cardiac structure and possible valvulopathies. 3. If stress testing is negative, then she can be discharged home for further management as an outpatient. 4. I spoke to her for greater than three minutes about tobacco cessation which she says that she is working to quit at this time. Thank you for allowing me to see Vivian Osorio. If there are any questions, please do not hesitate to call. Esteban Velarde DO VGP/DJL /10:47 PM /11:10 AM
--- NOTE | 2016-11-08 12:26 | PD.CARD.PN ---
Subjective Subjective Remarks No chest pain, no shortness of breath Abdominal pain this morning Objective Medications Current Medications Medications (Trade) Dose Ordered Sig/Taran Route Start Time Stop Time Status Last Admin (NS Flush) 2 ml UNSCH PRN IV FLUSH 11/07/16 15:15 (NS Flush) 2 ml BID IV FLUSH 11/07/16 21:00 11/08/16 08:44 (Coreg) 3.125 mg Q12HR PO 11/07/16 21:00 11/08/16 08:44 (Ecotrin Ec) 81 mg DAILY PO 11/08/16 09:00 11/08/16 08:44 (Nitrostat Sl) 0.3 mg Q5M PRN SL 11/07/16 15:15 (Protonix) 40 mg DAILY PO 11/08/16 09:00 11/08/16 08:44 Vital Signs / I&O Vital Signs Date Time Temp Pulse Resp B/P Pulse Ox O2 Delivery O2 Flow Rate FiO2 11/08/16 11:24 98.1 68 18 127/89 98 11/08/16 07:12 97.6 65 18 134/92 11/08/16 05:00 98.6 66 18 132/79 98 11/08/16 04:19 100 21 11/08/16 00:23 69 11/08/16 00:06 97.8 68 18 116/75 98 11/07/16 20:48 76 11/07/16 19:29 97.9 66 18 126/85 100 11/07/16 18:34 65 11/07/16 16:39 97.3 69 12 147/95 99 11/07/16 15:55 98 21 11/07/16 14:00 65 18 151/98 96 Room Air Physical Exam GENERAL: NAD, AAOx3 SKIN: Warm and dry. HEAD: Atraumatic. Normocephalic. EYES: Pupils equal and round. No scleral icterus. No injection or drainage. ENT: No nasal bleeding or discharge. Mucous membranes pink and moist. NECK: Trachea midline. No JVD. CARDIOVASCULAR: Regular rate and rhythm. RESPIRATORY: No accessory muscle use. Clear to auscultation. Breath sounds equal bilaterally. GASTROINTESTINAL: Abdomen soft, mildly tender RUQ, nondistended. Hepatic and splenic margins not palpable. MUSCULOSKELETAL: Extremities without clubbing, cyanosis, or edema. No obvious deformities. NEUROLOGICAL: Awake and alert. No obvious cranial nerve deficits. Motor grossly within normal limits. Five out of 5 muscle strength in the arms and legs. Normal speech. PSYCHIATRIC: Appropriate mood and affect; insight and judgment normal. Laboratory Laboratory Tests Test 11/07/16 11/07/16 11/07/16 11/08/16 13:29 16:00 23:27 06:07 Sodium Level 139 MEQ/L 143 MEQ/L Potassium Level 3.4 MEQ/L 3.7 MEQ/L Chloride Level 106 MEQ/L 106 MEQ/L Carbon Dioxide Level 24.9 MEQ/L 30.3 MEQ/L Anion Gap 8 MEQ/L 7 MEQ/L Blood Urea Nitrogen 13 MG/DL 9 MG/DL Creatinine 0.68 MG/DL 0.62 MG/DL Estimat Glomerular Filtration 111 ML/MIN 124 ML/MIN Rate Random Glucose 99 MG/DL 102 MG/DL Calcium Level 9.1 MG/DL 8.8 MG/DL Total Creatine Kinase 82 U/L 78 U/L Troponin I LESS THAN 0.02 LESS THAN 0.02 NG/ML NG/ML White Blood Count 4.6 TH/MM3 Red Blood Count 4.38 MIL/MM3 Hemoglobin 11.9 GM/DL Hematocrit 35.8 % Mean Corpuscular Volume 81.6 FL Mean Corpuscular Hemoglobin 27.3 PG Mean Corpuscular Hemoglobin 33.4 % Concent Red Cell Distribution Width 14.9 % Platelet Count 261 TH/MM3 Mean Platelet Volume 9.1 FL Neutrophils (%) (Auto) 43.8 % Lymphocytes (%) (Auto) 42.9 % Monocytes (%) (Auto) 8.2 % Eosinophils (%) (Auto) 4.3 % Basophils (%) (Auto) 0.8 % Neutrophils # (Auto) 2.0 TH/MM3 Lymphocytes # (Auto) 2.0 TH/MM3 Monocytes # (Auto) 0.4 TH/MM3 Eosinophils # (Auto) 0.2 TH/MM3 Basophils # (Auto) 0.0 TH/MM3 CBC Comment DIFF FINAL Differential Comment Phosphorus Level 2.8 MG/DL Magnesium Level 2.4 MG/DL Albumin 2.9 GM/DL Triglycerides Level 80 MG/DL Cholesterol Level 260 MG/DL LDL Cholesterol 159 MG/DL HDL Cholesterol 85.1 MG/DL Cholesterol/HDL Ratio 3.05 RATIO Assessment and Plan Problem List: (1) Chest pain (2) Hypertension (3) Abdominal pain Assessment and Plan 1) Atypical chest pain, but with abnormal EKG (no different from previous) myocardial perfusion stress test today 2) Check 2D echo 3) GI/Abdominal work-up per primary Problem Qualifiers (1) Chest pain: Qualified Code: R07.9 - Chest pain, unspecified type Esteban Bailey DO Nov 08, 2016 12:26
--- NOTE | 2016-11-08 12:53 | RADRPT ---
EXAM DATE/TIME: 11/08/2016 09:18 [facility] COMPARISON: No previous studies available for comparison. INDICATIONS : Right chest pain. Angina. DOSE: 25.4 mCi Tc99m Myoview at stress. 8.1 mCi Tc99m Myoview at rest. 0.4 mg Lexiscan STRESS SYMPTOMS: Dyspnea and headache. EJECTION FRACTION: 49% MEDICAL HISTORY : Hypertension. SURGICAL HISTORY : Cholecystectomy. Hysterectomy. ENCOUNTER: Initial ACUITY: 2 days PAIN SCALE: 2/10 LOCATION: Right chest TECHNIQUE: The patient underwent pharmacologic stress with infusion of prescribed dose. Continuous ECG tracing was monitored during stress. Gated SPECT imaging was performed after stress and conventional SPECT i maging was performed at rest. The examination was performed on a SPECT/CT scanner, both attenuation and non-corrected datasets were reviewed. FINDINGS: DISTRIBUTION: The maximum perfused segment at stress is in the septum. PERFUSION STUDY: There is mildly diminished relative perfusion involving the cardiac apex with mild redistribution. GATED STUDY: Mild apical hypokinesis CONCLUSION: Apical perfusion and wall motion abnormalities with mild redistribution. RISK CATEGORY: Intermediate (1-3% Annual Mortality Rate) Doug Hernández MD on November 08, 2016 at 12:47 Board Certified Radiologist. This report was verified electronically.
[2016-11-08 13:24] LABS: INDIRECT BILIRUBIN 0.4 MG/DL (0.0-0.8); TOTAL BILIRUBIN ADULT 0.6 MG/DL (0.2-1.0)
--- NOTE | 2016-11-08 13:27 | PD.CONS ---
HPI History of Present Illness This is a 51 year old female who came to the ER for evaluation of chest pain. She woke up around 6am yesterday morning with right sided anterior chest pain that she describes as a constant sharp pain, although the severity would vary. She denies any associated shortness of breath, numbness, tingling. She denies any associated nausea or vomiting. She does report have pain in her right upper quadrant, an intermittent severe cramp. She reports that she has had both the chest pain and abdominal pain in the past. Yesterday, she did not eat anything prior to her symptoms starting. The night before, she had some smoked turkey wings. She denies any diarrhea or constipation. She cannot identify any aggravating or alleviating factors-exertion, movement, or food intake. She denies any fevers or chills. She was evaluated by cardiology and underwent a nuclear stress test earlier today which revealed apical perfusion and wall motion abnormalities with mild redistribution, intermediate (1-3% annual mortality rate). She was also evaluated by gallbladder ultrasound (11/08/16)---- > 1. Common bile duct stent in place consistent with GI ERCP report of 2009 although patient denies this history. There is associated mild intrahepatic and common bile duct distention to 11 mm. Although this may be chronic in etiology, stent malfunction should be considered. 2. Gallbladder is not visualized. This is also consistent with ERCP report of 2009 although patient denies history of cholecystectomy. In the absence of cholecystectomy, differential considerations include a contracted small gallbladder versus gallbladder agenesis which is very rare. She initially did not recall having an ERCP or her cholecystectomy. Her brother is at the bedside and does recall that she had her gallbladder out several years ago. According to the EMR, she previously underwent an ERCP with sphincterotomy and stent placement (09/29/16) for choledocholithiasis, cholelithiasis, biliary ductal obstruction. She then had a laparoscopic cholecystectomy on (09/30/16). I did review our outpatient records and she has never followed up in the office as outpatient. PFSH Past Medical History Hypertension Uterine fibroids GERD Hx cholelithiasis, choledocholithiasis Past Surgical History Hysterectomy Fibroid tumor removal. Bilateral hand surgery ERCP with sphincterotomy, stent placement Coded Allergies: No Known Allergies (Verified , 11/07/16) Medications Allergies Coded Allergies Type Severity Reaction Last Updated Verified No Known Allergies 11/07/16 Yes Active Scripts Medications Dose Route/Sig Days Date Category Lisinopril 5 Mg Tab 5 Mg PO DAILY 03/19/16 Reported Family History Mother from colon cancer at age 54. Social History Patient has smoked one fourth pack of cigarettes per day the past 20 years. Denies any alcohol. Denies any illicit drugs. Review of Systems Constitutional: DENIES: Fever, Weight loss, Chills, Change in appetite Ears, nose, mouth, throat: DENIES: Vertigo Respiratory: DENIES: Cough Cardiovascular: COMPLAINS OF: Chest pain Gastrointestinal: COMPLAINS OF: Abdominal pain, DENIES: Black stools, Bloody stools, Constipation, Diarrhea, Nausea, Vomiting, Anorexia, Heartburn, Hematemesis Musculoskeletal: DENIES: Joint pain, Back pain Integumentary: DENIES: Abnormal pigmentation, Jaundice Hematologic/lymphatic: DENIES: Bruising Neurologic: DENIES: Headache Psychiatric: DENIES: Confusion GI Exam Vitals I&O Vital Signs Date Time Temp Pulse Resp B/P Pulse Ox O2 Delivery O2 Flow Rate FiO2 11/08/16 11:24 98.1 68 18 127/89 98 11/08/16 07:12 97.6 65 18 134/92 11/08/16 05:00 98.6 66 18 132/79 98 11/08/16 04:19 100 21 11/08/16 00:23 69 11/08/16 00:06 97.8 68 18 116/75 98 11/07/16 20:48 76 11/07/16 19:29 97.9 66 18 126/85 100 11/07/16 18:34 65 11/07/16 16:39 97.3 69 12 147/95 99 11/07/16 15:55 98 21 11/07/16 14:00 65 18 151/98 96 Room Air Imaging Last Impressions Myocardial Perfusion Scan Nuc Med 11/08/16 0700 Signed Impressions: Service Date/Time: Tuesday, November 08, 2016 09:18 - CONCLUSION: Apical perfusion and wall motion abnormalities with mild redistribution. RISK CATEGORY: Intermediate (1-3%% Annual Mortality Rate) Doug Hernández MD Gall Bladder Ultrasound 11/08/16 0000 Signed Impressions: Service Date/Time: Tuesday, November 08, 2016 08:20 - CONCLUSION: 1. Common bile duct stent in place consistent with GI ERCP report of 2009 although patient denies this history. There is associated mild intrahepatic and common bile duct distention to 11 mm. Although this may be chronic in etiology, stent malfunction should be considered. 2. Gallbladder is not visualized. This is also consistent with ERCP report of 2009 although patient denies history of cholecystectomy. In the absence of cholecystectomy, differential considerations include a contracted small gallbladder versus gallbladder agenesis which is very rare. Rolf Ren MD Chest X-Ray 11/07/16 1149 Signed Impressions: Service Date/Time: Monday, November 07, 2016 11:46 - CONCLUSION: No acute cardiopulmonary abnormality is identified. Doug Rivas MD Laboratory Test 11/07/16 11/07/16 11/07/16 11/08/16 13:29 16:00 23:27 06:07 Sodium Level 139 MEQ/L 143 MEQ/L Potassium Level 3.4 MEQ/L 3.7 MEQ/L Chloride Level 106 MEQ/L 106 MEQ/L Carbon Dioxide Level 24.9 MEQ/L 30.3 MEQ/L Anion Gap 8 MEQ/L 7 MEQ/L Blood Urea Nitrogen 13 MG/DL 9 MG/DL Creatinine 0.68 MG/DL 0.62 MG/DL Estimat Glomerular Filtration 111 ML/MIN 124 ML/MIN Rate Random Glucose 99 MG/DL 102 MG/DL Calcium Level 9.1 MG/DL 8.8 MG/DL Total Creatine Kinase 82 U/L 78 U/L Troponin I LESS THAN 0.02 LESS THAN 0.02 NG/ML NG/ML White Blood Count 4.6 TH/MM3 Red Blood Count 4.38 MIL/MM3 Hemoglobin 11.9 GM/DL Hematocrit 35.8 % Mean Corpuscular Volume 81.6 FL Mean Corpuscular Hemoglobin 27.3 PG Mean Corpuscular Hemoglobin 33.4 % Concent Red Cell Distribution Width 14.9 % Platelet Count 261 TH/MM3 Mean Platelet Volume 9.1 FL Neutrophils (%) (Auto) 43.8 % Lymphocytes (%) (Auto) 42.9 % Monocytes (%) (Auto) 8.2 % Eosinophils (%) (Auto) 4.3 % Basophils (%) (Auto) 0.8 % Neutrophils # (Auto) 2.0 TH/MM3 Lymphocytes # (Auto) 2.0 TH/MM3 Monocytes # (Auto) 0.4 TH/MM3 Eosinophils # (Auto) 0.2 TH/MM3 Basophils # (Auto) 0.0 TH/MM3 CBC Comment DIFF FINAL Differential Comment Phosphorus Level 2.8 MG/DL Magnesium Level 2.4 MG/DL Albumin 2.9 GM/DL Triglycerides Level 80 MG/DL Cholesterol Level 260 MG/DL LDL Cholesterol 159 MG/DL HDL Cholesterol 85.1 MG/DL Cholesterol/HDL Ratio 3.05 RATIO Physical Examination HEENT: Normocephalic; atraumatic; no jaundice. CHEST: CTA CARDIAC: RRR ABDOMEN: Soft, nondistended, RUQ tenderness; no hepatosplenomegaly; bowel sounds are present in all four quadrants. EXTREMITIES: No clubbing, cyanosis, or edema. SKIN: Normal; no rash; no jaundice. CORPSMAN: No focal deficits; alert and oriented times three. Assessment and Plan Plan ASSESSMENT: - RUQ Pain with abnormal imaging with mild intrahepatic and common bile duct distention and stent in place. Pt initially did not recall ERCP or Cholecystectomy, although her brother at the bedside remembers her having her GB removed. GB US (11/08/16)----> 1. Common bile duct stent in place consistent with GI ERCP report of 2010 although patient denies this history. There is associated mild intrahepatic and common bile duct distention to 11 mm. Although this may be chronic in etiology, stent malfunction should be considered. 2. Gallbladder is not visualized. This is also consistent with ERCP report of 2009 although patient denies history of cholecystectomy. In the absence of cholecystectomy, differential considerations include a contracted small gallbladder versus gallbladder agenesis which is very rare. S/P ERCP with sphincterotomy and stent placement (09/29/16) for choledocholithiasis, cholelithiasis, biliary ductal obstruction. She then had a laparoscopic cholecystectomy on (09/30/16). I did review our outpatient records and she has never followed up in the office as outpatient. Pt states she has had intermittent RUQ cramping, for years. LFTs with T. Bili 0.6, AST 69, ALT 190, Alk Phosph 195. It is likely that her pain could be related to retained stent. Will need ERCP with stent removal. Timing to be determined after cardiology reviews stress test. - Elevated LFTs. T. Bili 0.6, AST 69, ALT 190, ALk Phosph 195. US as above. Plan will be for ERCP once cleared by cardiology. - Atypical CP. C/O anterior right sided sharp chest pain that began yesterday, reports she has this intermittently for quite some time, often when she has the RUQ pain. S/P Nuclear stress test, apical perfusion and wall motion abnormalities with mild redistribution, intermediate (1-3% annual mortality rate). Troponins have been unremarkable. Dr. Lindsay following, will await his plan. - Hyperlipidemia per primary PLAN: - Plan for ERCP with stent removal once cleared by cardiology - Obtain consents - Keep NPO for now - PPI - Monitor labs - Supportive care - Further recommendations to follow based on results of above - Pt seen and examined by Dr. Corrales and myself and this note is written on his behalf Samreen Morillo Nov 08, 2016 13:26
--- NOTE | 2016-11-08 18:46 | EKG ---
Date Performed: 11/07/2016 Time Performed: 18:19:15 PTAGE: 51 years EKG: Sinus rhythm LEFT VENTRICULAR HYPERTROPHY AND ST-T CHANGE ABNORMAL ECG Since PREVIOUS TRACING , no significant change noted PREVIOUS TRACIN11/07/2016 16.20 DOCTOR: Dorothy Shelley Interpretating Date/Time 11/08/2016 18:45:56
--- NOTE | 2016-11-08 18:47 | EKG ---
Date Performed: 11/07/2016 Time Performed: 16:20:07 PTAGE: 51 years EKG: Sinus rhythm LEFT VENTRICULAR HYPERTROPHY AND ST-T CHANGE ABNORMAL ECG Since PREVIOUS TRACING , no significant change noted PREVIOUS TRACIN11/07/2016 11.47 DOCTOR: Dorothy Shelley Interpretating Date/Time 11/08/2016 18:46:21
--- NOTE | 2016-11-08 18:47 | EKG ---
Date Performed: 11/07/2016 Time Performed: 11:47:24 PTAGE: 51 years EKG: Sinus rhythm POSSIBLE LEFT ATRIAL ENLARGEMENT LEFT VENTRICULAR HYPERTROPHY AND ST-T CHANGE ABNORMAL ECG Since PREVIOUS TRACING , no significant change noted PREVIOUS TRACIN03/19/2016 15.37 DOCTOR: Dorothy Shelley Interpretating Date/Time 11/08/2016 18:46:49
[2016-11-08] MEDS: amLODIPine BESYLATE 5 MG TAB PO SCH (20:25)
[2016-11-09] VITALS (8 sets, daily range): BP systolic 108–146; BP diastolic 67–92; PULSE 65–87; RESP 15–20; TEMP 97.2–97.7; O2SAT 94–97
[2016-11-09] MEDS ORDERED: HEPARIN-NS/PF INJ 500 ML ONE ×2 (08:37→10:21)
[2016-11-09] MEDS ORDERED: MIDAZOLAM HCL 2 MG/2 ML VIAL ONE (08:38)
[2016-11-09] MEDS ORDERED: NITROGLYCERIN INJ 5 ML ONE (08:38)
[2016-11-09] MEDS ORDERED: HEPARIN SODIUM - IV 10,000 UNITS/10 ML VIAL ONE (08:39)
[2016-11-09] MEDS ORDERED: VERAPAMIL HCL 5 MG/2 ML VIAL ONE (08:39)
[2016-11-09] MEDS: amLODIPine BESYLATE 5 MG TAB PO SCH (08:50)
[2016-11-09] MEDS: ASPIRIN EC 81 MG TABEC PO SCH (08:50)
[2016-11-09] MEDS: CARVEDILOL 3.125 MG TAB PO SCH ×2 (08:50→21:33)
[2016-11-09] MEDS: SODIUM CHLORIDE 0.9% FLUSH 10 ML FLUSH IV FLUSH SCH ×2 (08:50→21:33)
[2016-11-09] MEDS: PANTOPRAZOLE SOD 40 MG DELAYED RELEASE TAB PO SCH (08:51)
[2016-11-09] MEDS ORDERED: IOHEXOL 350 MG/ML 100 ML BTL (for Cath Lab) OTHER ONE (09:20)
[2016-11-09] MEDS ORDERED: methylPREDNISolone SOD SUCC 125 MG/2 ML VIAL ONE (09:28)
[2016-11-09] MEDS ORDERED: diphenhydrAMINE HCL 50 MG/ML VIAL ONE (09:28)
[2016-11-09] MEDS ORDERED: ONDANSETRON HCL 4 MG/2 ML VIAL IV PRN (11:00)
[2016-11-09] MEDS ORDERED: oxyCODONE/ACETAMINOPHEN 5 MG/325 MG TAB PO PRN (11:00)
[2016-11-09] MEDS ORDERED: MISC INFORMATION XX ONE (11:00)
[2016-11-09] MEDS ORDERED: SODIUM CHLORIDE 0.9% FLUSH 10 ML FLUSH PRN (11:00)
[2016-11-09] MEDS ORDERED: ATROPINE SULFATE 1 MG/ML VIAL IV PRN (11:00)
[2016-11-09] MEDS ORDERED: SODIUM CHLOR 0.9% 250 ML INJ 250 ML IV PRN (11:00)
--- NOTE | 2016-11-09 11:03 | CATHPROC ---
[facility] HIS Report Study Information Study Number Admission Scheduled Start Study Start [id number] Nov 08 2016 2:51PM 11/08/2016 Nov 09 2016 9:26AM Arthur Service Cardiac Catheterization Admit Source Facility Department Emergency department [facility] - Seafood Team Member Physician and Clinical Staff Initial Esteban Frias Ultrasound Tester Lauren Gomez BSRN Other cathlab, cathlab Other Yajaira Lawton,GLORIA Recorder Geo Poole RCIS(BS) Subhash Islas RCIS(BS) Procedures Performed Procedure Location (Site) Vessel Name Coronary Angiograms LCA Left Coronary Coronary Angiograms RCA Right Coronary L Heart Cath Equipment Time Signwriter Description Size Mfg Part Number Used/Scraped TRANSDUCER, TRUWAVE [id number] 09:30 [employer] * Used W/STOCKCOCK *[id number]- INTRODUCER SET, 10:20 [employer] FR 5 SC-NT-U-SST Used MICROPUNCTURE, STIFFENED *[id number] *[id number] [id number] *[id number] *[id number] 09:30 [employer] PACK, CCL CUSTOM * Used *[id number] 09:30 [employer] SUPPORT, ARTERIAL ADULT [id number] Used BAND, RADIAL COMPRESSION TR [id number] 10:41 [employer] MEDICAL 29CM Used LARGE 29 *[id number] 09:30 [employer] WIRE, EXCHANGE 260CM 3MMJ 260CM Used *[id number] 09:30 [employer]IFOLD, 4 PORT * Used *[id number] 09:30 [employer] OMNIPAQUE, 350 MG, 150ML 150ML [id number] Used [id number] 09:30 [employer] BLANKET,WARM AIR CCL * Used *[id number] 10:20 [employer] MEDICAL SHEATH, FR5 TERUMO (10CM) FR 5 [id number] Used SHEATH, FR6 TRANSRADIAL 09:30 [employer]UM[employer] MEDICAL FR 6 [id number] Used SLENDER 10CM Equipment Model, Serial, Lot Number and Expiration Data Description Model Number Serial Number Lot Number Expiration Date INTRODUCER SET, [id number] 09-15-2019 MICROPUNCTURE, STIFFENED History: Current Medications Medication Dosage/Unit Route Frequency Last Date/Time Taken Beta Sheryl ASA History: Allergies Allergy Reaction Other LOBSTER History: Risk Factors Family History of Dyslipidemia Previous DC Previous Heart Failure Premature CAD Yes Yes No No Prior Valve Prior PCI Prior CABG Surgery No No No Cerebrovascular Peripheral Artery Chronic Lung On Dialysis Diabetes Disease Disease Disease No No No No No History: Symptoms/Diagnosis Selection Items Chest pain History: Stress Tests Stress or Imaging Studies Performed Yes Standard Exercise Stress Test No Stress Echo No Stress Test SPECT Stress Test SPECT Result Stress Test SPECT Ischemia Risk/Extent Yes Positive Unavailable Stress Test CMR No Cardiac CTA Coronary Calcium Score No No History: Other Disease Selection Items HTN History: Other Current Smoker Method Packs a Day Years Used Pack Years Yes Cigarettes 1 5 5 Labs Hgb (g/dl) Hct (%) WBC (l/cumm) Platelets (thousands) 11.60-17.00 35.00-51.00 4.00-11.00 150.00-450.00 11.9 35.8 4.6 261 Glucose (mg/dl) BUN (mg/dl) Creatinine (mg/dl) BUN:Creatinine (1:x) 74.00-106.00 7.00-18.00 0.50-1.30 10.00-20.00 102 9 0.6 15 Na (meq/l) K (meq/l) 136.00-145.00 3.50-5.10 143 3.7 INR (PTT:PT) 0.90-1.10 0.9 Troponin I (ng/ml) CPK-MB (ng/ML) 0.02-0.05 0.50-3.60 0.02 Not Drawn Medication Medication Total Dose (Bolus/Oral) Medication Total Dosage/Unit 1% XYLOCAINE 23 mL BENADRYL 50 mg FENTANYL 50 mcg RADIAL COCKTAIL 5 mL (Bolus) SOLU-MEDROL 125 mg VERSED 1 mg Medications (Bolus/Oral) Medication Time Given Dosage/Unit Administered By Reason SOLU-MEDROL 11/09/2016 9:37:48 AM 125 mg Rittenour, Lauren 125 mg SOLU-MEDROL given in lab by Lauren Gomez BSRN in Left Hand via Peripheral IV. Ordered by Esteban Bailey. BENADRYL 11/09/2016 9:38:45 AM 25 mg Rittenour, Lauren 25 mg BENADRYL given in lab by Lauren Gomez BSRN in Left Hand via Peripheral IV. Ordered by Esteban Rivera. BENADRYL 11/09/2016 9:42:28 AM 25 mg Rittenour, Lauren 25 mg BENADRYL given in lab by Lauren Gomez BSRN in Left Hand via Peripheral IV. Ordered by Esteban Rivrea. VERSED 11/09/2016 9:59:00 AM 0.5 mg Rittenour, Lauren 0.5 mg VERSED given in lab by Lauren Gomez BSRN in Left Antecubital via Peripheral IV. Ordered Esteban Jade. FENTANYL 11/09/2016 9:59:11 AM 25 mcg Rittenour, Lauren 25 mcg FENTANYL given in lab by Lauren Gomez BSRN in Left Antecubital via Peripheral IV. Ordered by Esteban Bailey. 1% XYLOCAINE 11/09/2016 10:08:32 AM 3 mL Esteban Bailey 3 mL 1% XYLOCAINE given in lab by Esteban Bailey in Right Radial via Subcutaneous. Ntg 200mcg Verapamil 2.5mg Heparin RADIAL COCKTAIL 11/09/2016 10:10:40 AM 5 mL (Bolus) Esteban Bailey 3000U 5 mL (Bolus) RADIAL COCKTAIL given in lab by Esteban Bailey in Right Radial via Radial. Using [Donita ution Name]. Reason: Ntg 200mcg Verapamil 2.5mg Heparin 3600U. 1% XYLOCAINE 11/09/2016 10:19:45 AM 20 mL Esteban Bailey 20 mL 1% XYLOCAINE given in lab by Esteban Bailey in Right Groin via Subcutaneous. VERSED 11/09/2016 10:27:10 AM 0.5 mg Rittenour, Lauren 0.5 mg VERSED given in lab by Lauren Gomez BSRN in Left Antecubital via Peripheral IV. Ordered Esteban Jade. FENTANYL 11/09/2016 10:28:13 AM 25 mcg Rittenour, Lauren 25 mcg FENTANYL given in lab by Lauren Gomez BSRN in Left Antecubital via Peripheral IV. Ordered by Esteban Bailey. Medication (Drip) Medication Time Given Dosage/Unit Concentration/Unit Diluent (ml) Solution IV Solutions 11/09/2016 9:26:22 AM 0 mL (IV) 1000 NaCl .9 Patient arrived on IV Solutions given by cathlab, cathlab in Left Hand via Peripheral IV. Pump/Drip F low = 20 ml/hr using NaCl .9. Ordered by Esteban Bailey. Initial Case Assessment Cardiovascular HR Rhythm NIBP Chest Pain 75 sinus 131/101 0 Edema Present Skin color Skin None Normal Warm Dry Circulatory - Right Pulses Dorsalis Pedis Femoral Radial 2 2 2 Scale (0,1,2,3,4,d) Scale (0,1,2,3,4,d) Neurological State Oriented to time-place- Alert Moves all extremities person Respiration - General Respiration Rate SpO2 (%) (B/min) 15 98 Final Case Assessment Cardiovascular HR Rhythm NIBP Chest Pain 73 sinus 150/96 0 Edema Present Skin color Skin None Normal Warm Dry Circulatory - Right Pulses Dorsalis Pedis Femoral Radial 2 2 2 Scale (0,1,2,3,4,d) Scale (0,1,2,3,4,d) Neurological State Oriented to time-place- Alert Moves all extremities person Respiration - General Respiration Rate SpO2 (%) (B/min) 15 98 Chronological Log Time Study Chronological Log 9:20:02 Patient arrived via Bed. 9:20:03 Patient Name, D.O.B, / Armband Verified By R.N. 9:20:50 Consent signed by the physician and the patient and verified by the Seafood Team Member staff. 9:26:03 Pre-op and post- op instructions given; patient acknowledges understanding of instructions. 9:26:04 Verbal Stimulation=2 Physical Stimulation=2 Airway=2 Respiration=2 TOTAL=8. (0=absent, 1=hager ited, 2=present) 9:26:05 Presedation assessment performed by Seafood Team Member RN. 9:26:05 Allens test performed on the right radial and ulnar artery. POSITIVE. 9:26:06 Immediate Presedation assesment performed by physician. 9:26:07 Patient has been NPO for More than 6Hrs. 9:26:11 Skin Breakdown- none per patient 9:26:19 Patient Warmer Placed on the Table. 9:26:20 Courtney Prominences Protected 9:26:22 A # 20 IV was noted in the Hand (left). Grade = 0 Patient arrived on IV Solutions given by cathlab, cathlab in Left Hand via Peripheral IV. Pump/ Drip Flow = 20 ml/hr 9:26:22 using NaCl .9. Ordered by Esteban Bailey. 9:26:23 History and physical on the chart or being dictated. Vitals capture started with the following parameters, Patient=Adult, Interval=5 min, Initial Pr rfdvrn=310 mmHg, 9:26:35 Deflation Rate=5 mmHg 9:27:12 HR=67 bpm, QPIX=183/101 mmhg, SpO2=98.0 %, Resp=15 B/min, Pain=0, Conrado=10, Perdomo=2 Assessment: Initial Case, HR=75 BPM, Rhythm=sinus, JDGX=824/101 mmhg, Chest Pain=0, Edema=None, Color=Normal, Skin = Warm, Dry 9:30:14 Right Pulses: Chirag Ped=2, Femoral=2, Radial=2 Neurological: State=Alert, Ox3, MONTANEZ Respiration: Resp=15 B/min, SpO2=98 % 9:32:07 HR=64 bpm, CYXK=017/96 mmhg, SpO2=99 %, Resp=15 B/min, Pain=0, Conrado=10, Perdomo=2 9:37:12 HR=69 bpm, XEWS=268/88 mmhg, SpO2=99.0 %, Resp=16 B/min, Pain=0, Conrado=10, Perdomo=2 125 mg SOLU-MEDROL given in lab by Lauren Gomez BSRN in Left Hand via Peripheral IV. Order ed by Leo, 9:37:48 Esteban. 9:38:45 25 mg BENADRYL given in lab by Lauren Gomez BSRN in Left Hand via Peripheral IV. Ordere d by Esteban Bailey. 9:41:39 Patient complaining of pain at Left hand IV site. 9:42:28 25 mg BENADRYL given in lab by Lauren Gomez BSRN in Left Hand via Peripheral IV. Ordere d by Esteban Bailey. 9:47:13 Yajaira Lawton RN started a #20 IV in the Left Antecubital 9:49:30 Right Radial and groin(s) prepped with 2% chlorhexidine, and with a 3 min. waiting time. 9:50:21 Reference ECG taken Vitals capture started with the following parameters, Patient=Adult, Interval=5 min, Initial Pr dljiui=056 mmHg, 9:56:46 Deflation Rate=5 mmHg 9:57:56 HR=77 bpm, SKWL=493/113 mmhg, ZtU9=288.0 %, Resp=18 B/min, Pain=0, Conrado=10, Perdomo=2 0.5 mg VERSED given in lab by Lauren Gomez BSRN in Left Antecubital via Peripheral IV. Ord ered by Leo, 9:59:00 Esteban. 25 mcg FENTANYL given in lab by Lauren Gomez BSRN in Left Antecubital via Peripheral IV. O rdered by Leo, 9:59:11 Esteban. 10:02:22 HR=66 bpm, MBJZ=225/104 mmhg, SpO2=98.0 %, Resp=17 B/min, Pain=0, Conrado=10, Perdomo=2 10:03:32 Pressure channel 1 zeroed. Time Out. Correct patient, correct procedure,correct physician, ,power injector not loaded with contrast with surgical 10:07:04 team present. Time Out Concurred by MD, individual staff in procedure 10:07:21 HR=73 bpm, SYNA=034/108 mmhg, SpO2=97.0 %, Resp=19 B/min, Pain=0, Conrado=10, Perdomo=2 10:07:41 Verbal Stimulation=2 Physical Stimulation=2 Airway=2 Respiration=2 TOTAL=8. (0=absent, 1=li mited, 2=present) 10:08:02 Case Start 10:08:32 3 mL 1% XYLOCAINE given in lab by Esteban Bailey in Right Radial via Subcutaneous. 10:09:51 Access site was Right Radial Artery. A SHEATH, FR6 TRANSRADIAL SLENDER 10CM FR 6 was advanced into the Radial (right) using the Perc utaneous 10:10:02 technique. 5 mL (Bolus) RADIAL COCKTAIL given in lab by Esteban Bailey in Right Radial via Radial. Jackie banuelos [Solution Name]. 10:10:40 Reason: Ntg 200mcg Verapamil 2.5mg Heparin 3600U. A JR 4.0 INFINITI CATHETER FR 5 was advanced over a wire. OMNIPAQUE, 350 MG, 150ML 150ML was us ed for 10:11:30 injections. 10:12:22 HR=66 bpm, ZKRP=481/92 mmhg, SpO2=98.0 %, Resp=15 B/min, Pain=0, Conrado=10, Perdomo=2 Recorded Pressure: Ao, HR=67, Condition=Condition 1 10:14:22 (Aorta) Ao 131/88/108 10:17:19 HR=66 bpm, HOMF=052/94 mmhg, SpO2=94.0 %, Resp=11 B/min, Pain=0, Conrado=10, Perdomo=2 10:18:26 Catheter was removed 10:18:28 Unable to cannulate RCA from R. Radial artery access, proceeding with RFA access. 10:19:45 20 mL 1% XYLOCAINE given in lab by Esteban Bailey in Right Groin via Subcutaneous. 10:22:10 Access site was Right Femoral Artery. A INTRODUCER SET, MICROPUNCTURE, STIFFENED FR 5 was advanced into the Fem Art (right) using the 10:22:16 Percutaneous technique. 10:22:20 HR=66 bpm, MEMH=341/91 mmhg, SpO2=98.0 %, Resp=15 B/min, Pain=0, Conrado=10, Perdomo=2 A SHEATH, FR5 TERUMO (10CM) FR 5 was exchanged in the Fem Art (right). This was necessary in or derrek to 10:22:39 accomodate a larger catheter. 10:24:38 An injection in the Fem Art (right) was made through the SHEATH, FR5 TERUMO (10CM) FR 5. A JR 4.0 INFINITI CATHETER FR 5 was advanced over a wire. OMNIPAQUE, 350 MG, 150ML 150ML was us ed for 10:25:02 injections. Recorded Pressure: LV, HR=64, Condition=Condition 1 10:26:57 (Left Ventricle) LV 136/1/10 0.5 mg VERSED given in lab by Lauren Gomez, BSRN in Left Antecubital via Peripheral IV. Ord ered by Leo, 10:27:10 Esteban. Recorded Pressure: LV, Ao, HR=66, Condition=Condition 1 10:27:11 (Left Ventricle) LV 143/1/10, (Aorta) Ao 145/91/115 10:27:21 HR=66 bpm, AOET=270/106 mmhg, SpO2=95 %, Resp=25 B/min, Pain=0, Conrado=10, Perdomo=2 25 mcg FENTANYL given in lab by Lauren Gomez BSRN in Left Antecubital via Peripheral IV. O rdered by Leo, 10:28:13 Esteban. After removing the current catheter a JL 4.0 INFINITI CATHETER FR 5 was advanced over a WIRE, E XCHANGE 260CM 10:30:51 3MMJ 260CM. 10:32:22 HR=64 bpm, HBOJ=052/96 mmhg, AuQ7=285.0 %, Resp=16 B/min, Pain=0, Conrado=10, Perdomo=2 10:34:10 The LCA was injected and visualized at various angles. OMNIPAQUE, 350 MG, 150ML 150ML used . After removing the current catheter a 3DRC INFINITI CATHETER FR 5 was advanced over a WIRE, EXC HANGE 260CM 10:36:01 3MMJ 260CM. 10:37:21 HR=70 bpm, ZPMW=085/97 mmhg, SpO2=95.0 %, Resp=16 B/min, Pain=0, Conrado=10, Perdomo=2 10:38:35 The RCA was injected and visualized at various angles. OMNIPAQUE, 350 MG, 150ML 150ML used . 10:39:16 Catheter was removed 10:40:12 Activated Clotting Time Drawn 10:42:24 HR=73 bpm, QLUQ=666/96 mmhg, SpO2=96.0 %, Resp=16 B/min, Pain=0, Conrado=10, Perdomo=2 Radial Compression Device Used. 10 mLs of air placed in BAND, RADIAL COMPRESSION TR LARGE 29 29 CM. Affected 10:44:07 hand 95 % O2 saturation. 10:45:17 Activated Clotting Time Drawn 10:45:20 Case End Assessment: Final Case, HR=73 BPM, Rhythm=sinus, BFNZ=750/96 mmhg, Chest Pain=0, Edema=None, Color=Normal, Skin = Warm, Dry 10:45:25 Right Pulses: Chirag Ped=2, Femoral=2, Radial=2 Neurological: State=Alert, Ox3, MONTANEZ Respiration: Resp=15 B/min, SpO2=98 % 10:45:38 No case complications noted. 10:45:39 Cine recording checked. 10:45:42 Bedside Report will be given. 10:45:46 Verbal Stimulation=2 Physical Stimulation=2 Airway=2 Respiration=2 TOTAL=8. (0=absent, 1=l imited, 2=present) 10:45:56 A Left Heart Cath was performed. 10:47:23 HR=65 bpm, VRMT=343/104 mmhg, SpO2=97.0 %, Resp=16 B/min, Pain=0, Conrado=10, Perdomo=2 10:49:50 ACT (Normal Range 90-180) = 223 10:50:16 Sterile dressing applied to site 10:52:08 Vitals capture stopped. 10:54:45 Patient moved to stretcher End Study - Contrast Media Used In Study Contrast Total Opened (mL) Total Used (mL) Total Wasted (mL) Omnipaque 80 80 0 End Study - Maximum Contrast Load Max Contrast Load (mL) 749.2 End Study - Radiation Exposure Fluoro Time (minutes) 11.0 End Study - Patient Disposition Complications Transferred To Interventional Outcome No Seafood Team Member Holding No attempt made
--- NOTE | 2016-11-09 13:12 | PD.CARD.PN ---
Subjective Subjective Remarks Post-cath No complaints Objective Medications Current Medications Medications (Trade) Dose Ordered Sig/Taran Route Start Time Stop Time Status Last Admin (NS Flush) 2 ml UNSCH PRN IV FLUSH 11/07/16 15:15 (NS Flush) 2 ml BID IV FLUSH 11/07/16 21:00 11/09/16 08:50 (Coreg) 3.125 mg Q12HR PO 11/07/16 21:00 11/09/16 08:50 (Ecotrin Ec) 81 mg DAILY PO 11/08/16 09:00 11/09/16 08:50 (Nitrostat Sl) 0.3 mg Q5M PRN SL 11/07/16 15:15 (Protonix) 40 mg DAILY PO 11/08/16 09:00 11/09/16 08:51 (Norvasc) 2.5 mg DAILY PO 11/08/16 18:45 11/09/16 08:50 (Percocet 5-325 Mg) 1 tab Q4H PRN PO 11/09/16 11:00 (Percocet 5-325 Mg) 2 tab Q4H PRN PO 11/09/16 11:00 Atropine Sulfate 0.5 mg 0.5 mg UNSCH PRN IV 11/09/16 11:00 (NS 250 ml Inj) 250 ml @ 500 mls/hr ONCE PRN IV 11/09/16 11:00 11/10/16 10:59 (Zofran Inj) 4 mg Q4H PRN IV 11/09/16 11:00 Vital Signs / I&O Vital Signs Date Time Temp Pulse Resp B/P Pulse Ox O2 Delivery O2 Flow Rate FiO2 11/09/16 11:43 96 21 11/09/16 08:00 97.6 67 20 142/92 96 11/09/16 04:17 21 11/09/16 04:00 97.2 65 17 130/84 97 11/09/16 04:00 Room Air 11/09/16 00:00 Room Air 11/09/16 00:00 97.7 69 15 108/67 97 11/08/16 20:00 Room Air 11/08/16 20:00 97.2 63 17 148/90 97 11/08/16 17:35 97.3 63 20 150/96 98 11/08/16 15:37 97.4 65 16 140/99 98 I/O 11/08/16 11/08/16 11/08/16 11/09/16 11/09/16 11/09/16 07:00 15:00 23:00 07:00 15:00 23:00 Intake Total 480 ml 0 ml Output Total 550 ml 700 ml Balance -70 ml -700 ml Intake Oral 480 ml 0 ml Output Urine Total 550 ml 700 ml Physical Exam GENERAL: NAD, AAOx3 SKIN: Warm and dry. HEAD: Atraumatic. Normocephalic. EYES: Pupils equal and round. No scleral icterus. No injection or drainage. ENT: No nasal bleeding or discharge. Mucous membranes pink and moist. NECK: Trachea midline. No JVD. CARDIOVASCULAR: Regular rate and rhythm. RESPIRATORY: No accessory muscle use. Clear to auscultation. Breath sounds equal bilaterally. GASTROINTESTINAL: Abdomen soft, mildly tender RUQ, nondistended. Hepatic and splenic margins not palpable. MUSCULOSKELETAL: Extremities without clubbing, cyanosis, or edema. No obvious deformities. NEUROLOGICAL: Awake and alert. No obvious cranial nerve deficits. Motor grossly within normal limits. Five out of 5 muscle strength in the arms and legs. Normal speech. PSYCHIATRIC: Appropriate mood and affect; insight and judgment normal. Laboratory Laboratory Tests Test 11/07/16 11/07/16 11/07/16 11/07/16 11:55 13:29 16:00 23:27 White Blood Count 6.0 TH/MM3 (4.0-11.0) Red Blood Count 4.59 MIL/MM3 (4.00-5.30) Hemoglobin 12.3 GM/DL (11.6-15.3) Hematocrit 37.2 % (35.0-46.0) Mean Corpuscular Volume 81.2 FL (80.0-100.0) Mean Corpuscular Hemoglobin 26.9 PG (27.0-34.0) Mean Corpuscular Hemoglobin 33.2 % Concent (32.0-36.0) Red Cell Distribution Width 15.0 % (11.6-17.2) Platelet Count 253 TH/MM3 (150-450) Mean Platelet Volume 8.9 FL (7.0-11.0) Neutrophils (%) (Auto) 53.1 % (16.0-70.0) Lymphocytes (%) (Auto) 35.1 % (9.0-44.0) Monocytes (%) (Auto) 7.5 % (0.0-8.0) Eosinophils (%) (Auto) 3.9 % (0.0-4.0) Basophils (%) (Auto) 0.4 % (0.0-2.0) Neutrophils # (Auto) 3.2 TH/MM3 (1.8-7.7) Lymphocytes # (Auto) 2.1 TH/MM3 (1.0-4.8) Monocytes # (Auto) 0.5 TH/MM3 (0-0.9) Eosinophils # (Auto) 0.2 TH/MM3 (0-0.4) Basophils # (Auto) 0.0 TH/MM3 (0-0.2) CBC Comment DIFF FINAL Differential Comment Prothrombin Time 10.0 SEC (9.8-11.6) Prothromb Time International 0.9 RATIO Ratio Activated Partial 25.2 SEC Thromboplast Time (24.3-30.1) Sodium Level 149 MEQ/L 139 MEQ/L (136-145) (136-145) Potassium Level 2.3 MEQ/L 3.4 MEQ/L (3.5-5.1) (3.5-5.1) Chloride Level 120 MEQ/L 106 MEQ/L (98-107) (98-107) Carbon Dioxide Level 21.6 MEQ/L 24.9 MEQ/L (21.0-32.0) (21.0-32.0) Anion Gap 7 MEQ/L (5-15) 8 MEQ/L (5-15) Blood Urea Nitrogen 10 MG/DL (7-18) 13 MG/DL (7-18) Creatinine 0.39 MG/DL 0.68 MG/DL (0.50-1.00) (0.50-1.00) Estimat Glomerular Filtration 211 ML/MIN 111 ML/MIN Rate (>89) (>89) Random Glucose 85 MG/DL 99 MG/DL (74-106) (74-106) Calcium Level 5.9 MG/DL 9.1 MG/DL (8.5-10.1) (8.5-10.1) Protein Corrected Calcium 7.0 MG/DL (8.5-10.1) Magnesium Level 1.3 MG/DL (1.5-2.5) Total Creatine Kinase 61 U/L (26-192) 82 U/L (26-192) 78 U/L (26-192) Troponin I LESS THAN 0.02 LESS THAN 0.02 LESS THAN 0.02 NG/ML NG/ML NG/ML (0.02-0.05) (0.02-0.05) (0.02-0.05) Total Protein 4.6 GM/DL (6.4-8.2) Test 11/08/16 11/08/16 06:07 12:39 White Blood Count 4.6 TH/MM3 (4.0-11.0) Red Blood Count 4.38 MIL/MM3 (4.00-5.30) Hemoglobin 11.9 GM/DL (11.6-15.3) Hematocrit 35.8 % (35.0-46.0) Mean Corpuscular Volume 81.6 FL (80.0-100.0) Mean Corpuscular Hemoglobin 27.3 PG (27.0-34.0) Mean Corpuscular Hemoglobin 33.4 % Concent (32.0-36.0) Red Cell Distribution Width 14.9 % (11.6-17.2) Platelet Count 261 TH/MM3 (150-450) Mean Platelet Volume 9.1 FL (7.0-11.0) Neutrophils (%) (Auto) 43.8 % (16.0-70.0) Lymphocytes (%) (Auto) 42.9 % (9.0-44.0) Monocytes (%) (Auto) 8.2 % (0.0-8.0) Eosinophils (%) (Auto) 4.3 % (0.0-4.0) Basophils (%) (Auto) 0.8 % (0.0-2.0) Neutrophils # (Auto) 2.0 TH/MM3 (1.8-7.7) Lymphocytes # (Auto) 2.0 TH/MM3 (1.0-4.8) Monocytes # (Auto) 0.4 TH/MM3 (0-0.9) Eosinophils # (Auto) 0.2 TH/MM3 (0-0.4) Basophils # (Auto) 0.0 TH/MM3 (0-0.2) CBC Comment DIFF FINAL Differential Comment Sodium Level 143 MEQ/L (136-145) Potassium Level 3.7 MEQ/L (3.5-5.1) Chloride Level 106 MEQ/L (98-107) Carbon Dioxide Level 30.3 MEQ/L (21.0-32.0) Anion Gap 7 MEQ/L (5-15) Blood Urea Nitrogen 9 MG/DL (7-18) Creatinine 0.62 MG/DL (0.50-1.00) Estimat Glomerular Filtration 124 ML/MIN Rate (>89) Random Glucose 102 MG/DL (74-106) Calcium Level 8.8 MG/DL (8.5-10.1) Phosphorus Level 2.8 MG/DL (2.5-4.9) Magnesium Level 2.4 MG/DL (1.5-2.5) Albumin 2.9 GM/DL 3.2 GM/DL (3.4-5.0) (3.4-5.0) Triglycerides Level 80 MG/DL (42-150) Cholesterol Level 260 MG/DL (120-200) LDL Cholesterol 159 MG/DL (0-99) HDL Cholesterol 85.1 MG/DL (40.0-60.0) Cholesterol/HDL Ratio 3.05 RATIO Total Bilirubin 0.6 MG/DL (0.2-1.0) Direct Bilirubin 0.2 MG/DL (0.0-0.2) Indirect Bilirubin 0.4 MG/DL (0.0-0.8) Aspartate Amino Transf 69 U/L (15-37) (AST/SGOT) Alanine Aminotransferase 190 U/L (10-53) (ALT/SGPT) Alkaline Phosphatase 195 U/L (45-117) Total Protein 7.7 GM/DL (6.4-8.2) Assessment and Plan Problem List: (1) Chest pain (2) Hypertension (3) Abdominal pain Assessment and Plan 1) Atypical chest pain, but with abnormal EKG myocardial perfusion stress test Showing distal apical perfusion defect, catheterization today showing minimal CAD 2) 2D echo pending 3) Cardiovascularly stable for ERCP, discussed with GI 4) Overall needs penitentiary blood pressure control Problem Qualifiers (1) Chest pain: Qualified Code: R07.9 - Chest pain, unspecified type Esteban Bailey DO Nov 09, 2016 13:12
--- NOTE | 2016-11-09 15:40 | HHI.GIFU ---
Subjective Remarks Resting in bed. No n/v. Mild RUQ tenderness, but no significant pain. Pt okay with having ERCP tomorrow, hoping to be discharged by Monday. Objective Vitals I&O Vital Signs Date Time Temp Pulse Resp B/P Pulse Ox O2 Delivery O2 Flow Rate FiO2 11/09/16 14:14 98 Room Air 11/09/16 11:43 96 21 11/09/16 08:00 97.6 67 20 142/92 96 11/09/16 04:17 21 11/09/16 04:00 97.2 65 17 130/84 97 11/09/16 04:00 Room Air 11/09/16 00:00 Room Air 11/09/16 00:00 97.7 69 15 108/67 97 11/08/16 20:00 Room Air 11/08/16 20:00 97.2 63 17 148/90 97 11/08/16 17:35 97.3 63 20 150/96 98 I/O 11/08/16 11/08/16 11/08/16 11/09/16 11/09/16 11/09/16 07:00 15:00 23:00 07:00 15:00 23:00 Intake Total 480 ml 0 ml Output Total 550 ml 700 ml Balance -70 ml -700 ml Intake Oral 480 ml 0 ml Output Urine Total 550 ml 700 ml Imaging Last Impressions Myocardial Perfusion Scan Nuc Med 11/08/16 0700 Signed Impressions: Service Date/Time: Tuesday, November 08, 2016 09:18 - CONCLUSION: Apical perfusion and wall motion abnormalities with mild redistribution. RISK CATEGORY: Intermediate (1-3%% Annual Mortality Rate) Doug Hernández MD Gall Bladder Ultrasound 11/08/16 0000 Signed Impressions: Service Date/Time: Tuesday, November 08, 2016 08:20 - CONCLUSION: 1. Common bile duct stent in place consistent with GI ERCP report of 2009 although patient denies this history. There is associated mild intrahepatic and common bile duct distention to 11 mm. Although this may be chronic in etiology, stent malfunction should be considered. 2. Gallbladder is not visualized. This is also consistent with ERCP report of 2009 although patient denies history of cholecystectomy. In the absence of cholecystectomy, differential considerations include a contracted small gallbladder versus gallbladder agenesis which is very rare. Rolf eRn MD Chest X-Ray 11/07/16 1149 Signed Impressions: Service Date/Time: Monday, November 07, 2016 11:46 - CONCLUSION: No acute cardiopulmonary abnormality is identified. Doug Rivas MD Physical Exam HEENT: Normocephalic; atraumatic; no jaundice. CHEST: CTA CARDIAC: RRR. ABDOMEN: Soft, nondistended, RUQ tenderness; no hepatosplenomegaly; bowel sounds are present in all four quadrants. EXTREMITIES: No clubbing, cyanosis, or edema. SKIN: Normal; no rash; no jaundice. [employer]LE: No focal deficits; alert and oriented times three. Assessment and Plan Plan ASSESSMENT: - RUQ Pain with abnormal imaging with mild intrahepatic and common bile duct distention and stent in place. Pt initially did not recall ERCP or Cholecystectomy, although her brother at the bedside remembers her having her GB removed. GB US (11/08/16)----> 1. Common bile duct stent in place consistent with GI ERCP report of 2009 although patient denies this history. There is associated mild intrahepatic and common bile duct distention to 11 mm. Although this may be chronic in etiology, stent malfunction should be considered. 2. Gallbladder is not visualized. This is also consistent with ERCP report of 2009 although patient denies history of cholecystectomy. In the absence of cholecystectomy, differential considerations include a contracted small gallbladder versus gallbladder agenesis which is very rare. S/P ERCP with sphincterotomy and stent placement (09/29/16) for choledocholithiasis, cholelithiasis, biliary ductal obstruction. She then had a laparoscopic cholecystectomy on (09/30/16). I did review our outpatient records and she has never followed up in the office as outpatient. Pt states she has had intermittent RUQ cramping, for years. LFTs with T. Bili 0.6, AST 69, ALT 190, Alk Phosph 195 yesterday. It is likely that her pain could be related to retained stent. S/P Stress test, negative. Plan is for ERCP with stent removal vs. exchange tomorrow. - Elevated LFTs. T. Bili 0.6, AST 69, ALT 190, ALk Phosph 195 yesterday. US as above. Plan will be for ERCP once cleared by cardiology. - Atypical CP. C/O anterior right sided sharp chest pain that began yesterday, reports she has this intermittently for quite some time, often when she has the RUQ pain. S/P Nuclear stress test, apical perfusion and wall motion abnormalities with mild redistribution, intermediate (1-3% annual mortality rate). Troponins have been unremarkable. S/P Cardiac cath, negative, okay for ERCP per Dr. Lindsay. - Hyperlipidemia per primary PLAN: - Plan for ERCP with stent removal vs. exchange tomorrow - Obtain consents - NPO after MN - PPI - Hold heparin after MN - Monitor labs - Supportive care - Further recommendations to follow based on results of above - Pt seen and examined by Dr. Corrales and myself and this note is written on his behalf Samreen Morillo Nov 09, 2016 15:40
--- NOTE | 2016-11-09 16:10 | ECHRPT ---
Indication: Chest pain, unspecified CONCLUSIONS Normal left ventricular size. Mild concentric left ventricular hypertrophy. The left ventricular systolic function is normal with an estimated ejection fraction in the range of 55-60%. No regional wall motion abnormalities are present. There is a trivial pericardial effusion present. BP: 134 / 92 HR: 65 Rhythm: Sinus MEASUREMENTS (Male / Female) Normal Values Technical Quality:Technically difficult study 2D ECHO LV Diastolic Diameter PLAX 4.7 cm 4.2 - 5.9 / 3.9 - 5.3 cm LV Systolic Diameter PLAX 3.3 cm IVS Diastolic Thickness 1.4 cm 0.6 - 1.0 / 0.6 - 0.9 cm LVPW Diastolic Thickness 1.1 cm 0.6 - 1.0 / 0.6 - 0.9 cm LV Relative Wall Thickness 0.5 RV Internal Dim ED PLAX 2.0 cm LA Systolic Diameter LX 3.5 cm 3.0 - 4.0 / 2.7 - 3.8 cm M-MODE Aortic Root Diameter MM 2.7 cm AV Cusp Separation MM 1.8 cm DOPPLER AV Peak Velocity 223.0 cm/s AV Peak Gradient 19.9 mmHg LVOT Peak Velocity 174.0 cm/s LVOT Peak Gradient 12.1 mmHg Mitral E Point Velocity 50.5 cm/s Mitral A Point Velocity 56.3 cm/s Mitral E to A Ratio 0.9 TR Peak Velocity 205.0 cm/s TR Peak Gradient 16.8 mmHg FINDINGS LEFT VENTRICLE Normal left ventricular size. Mild concentric left ventricular hypertrophy. The left ventricular systolic function is normal with an estimated ejection fraction in the range of 55-60%. No regional wall motion abnormalities are present. PERICARDIUM There is a trivial pericardial effusion present. Parminder Carroll MD (Electronically Signed) Final Date:09 November 2016 16:09
--- NOTE | 2016-11-09 16:31 | MA ---
CC: ESTEBAN VELARDE DO DATE 11/09/2016 PROCEDURE Left heart catheterization, coronary angiogram, moderate sedation 45 minutes. PREPROCEDURE DIAGNOSIS Chest pain, abnormal stress test. POSTPROCEDURE DIAGNOSIS Minimal coronary artery disease, tortuosity showing longstanding hypertension. MEDICATIONS 1. Solu-Medrol 125 mg. 2. Benadryl 15 mg. 3. Nitro 200 mcg. 4. Verapamil 2.5 mg. 5. Heparin 3600 units. 6. Versed 1 mg. 7. Fentanyl 50 mcg. CONTRAST 80 mL. ANESTHESIA Moderate sedation 45 minutes PROCEDURAL SUMMARY Vivian Osorio is a pleasant 51-year-old female who presented originally with atypical chest pain as well as an abnormal EKG to [facility]. Because of this she underwent pharmacologic nuclear stress testing which showed a defect in the apical portion with an intermediate risk associated with it. Because of this she was recommended cardiac catheterization. Risks, benefits and alternatives were explained to her and she consented as such. She does have a history of allergy to lobster but can eat shrimp. But because of possible concern for associated IV contrast allergy she was given Solu-Medrol 125 mg and Benadryl 50 mg preoperatively. She was prepped in the usual sterile fashion. Right radial artery was accessed using a modified Seldinger technique and placement of a 5/6 Urdu sheath. A JR-4 was advanced over a J-wire to the ascending aortic root although the aorta shows significant tortuosity making it impossible to torque the catheter to a point where I was able to engage the right coronary artery. The patient was also having pain within her arm during this most likely due to spasm and it is felt that the radial artery needed to be aborted at that time. The right groin was then accessed using a modified Seldinger technique with a micropuncture needle and placement of a 5-Urdu sheath. This was easily aspirated and flushed. Of note the patient does have a high bifurcation and my arteriotomy site is probably in the distal MEETING MANAGER or the proximal SFA. The JR-4 was advanced over a J-wire to the ascending aortic root and across the aortic valve into the left ventricle for measurement of left ventricular end-diastolic pressure. This was then pulled back across the aortic valve showing no significant gradient of aortic stenosis. JR-4 was unable to be torqued into a position to access the right coronary artery. JR-4 was then exchanged for a JL-4. This was used for selective angiography of the left coronary system. This was then exchanged for a 3DRC which was used to selectively engage the right coronary system for angiography. A 3DRC was removed over a J-wire. A radial band was placed across the arteriotomy site for hemostasis. ACT was drawn at 220 with a plan for pulling the line once ACT was below 180. The patient left the label cutter cardiovascularly stable. FINDINGS Left main is a normal-size vessel with adequate reflux and no significant disease. It bifurcates into an LAD and circumflex. LAD is a large vessel with a overall no significant disease but does have tortuosity throughout. It gives off two diagonals which both have some tortuosity but no significant disease. Left circumflex is a moderate to small size vessel with no significant disease throughout. Once again it shows tortuosity. It does have one obtuse marginal with no significant disease. RCA is a large vessel with no significant disease throughout. It is dominant in nature. Overall it has extensive tortuosity. Left ventricular end-diastolic pressure 10. IMPRESSION 1. Atypical chest pain with an abnormal stress test. 2. Minimal coronary artery disease by cardiac catheterization (November 09, 2016) as above. Extensive tortuosity throughout the vessel shows probable longstanding hypertension. RECOMMENDATIONS 1. Ms. Osorio's catheterization shows no significant disease and it is felt that her chest pain is most likely atypical in nature. 2. She does have extensive tortuosity throughout showing long-term hypertension. We will attempt to place her on antihypertensive medications for further blood pressure control. 3. I spoke to her again about tobacco cessation which she states she is willing to try. 4. I did speak to the gastroenterology team as the patient is cardiovascularly stable for ERCP. Thank you for allowing me to see Vivian Osorio. If there are any questions please do not hesitate to call. Esteban Velarde DO VGP/KK /1:44 PM /11:10 AM
--- NOTE | 2016-11-09 16:40 | HHI.PR ---
Subjective Remarks No chest pain today. Right upper quadrant pain remains. Heart catheter today is negative for significant coronary artery disease, no need for stent. EGD planned for tomorrow. Objective Vital Signs Date Time Temp Pulse Resp B/P Pulse Ox O2 Delivery O2 Flow Rate FiO2 11/09/16 14:14 98 Room Air 11/09/16 11:43 96 21 11/09/16 08:00 97.6 67 20 142/92 96 11/09/16 04:17 21 11/09/16 04:00 97.2 65 17 130/84 97 11/09/16 04:00 Room Air 11/09/16 00:00 Room Air 11/09/16 00:00 97.7 69 15 108/67 97 11/08/16 20:00 Room Air 11/08/16 20:00 97.2 63 17 148/90 97 11/08/16 17:35 97.3 63 20 150/96 98 I/O 11/08/16 11/08/16 11/08/16 11/09/16 11/09/16 11/09/16 07:00 15:00 23:00 07:00 15:00 23:00 Intake Total 480 ml 0 ml Output Total 550 ml 700 ml Balance -70 ml -700 ml Intake Oral 480 ml 0 ml Output Urine Total 550 ml 700 ml Result Diagram: 11/08/1660611/08/16606 Objective Remarks GENERAL: NAD, A&Ox3 HEAD: Normocephalic. NECK: Supple, trachea midline. No lymphadenopathy. EYES: No scleral icterus. No injection or drainage. CARDIOVASCULAR: Regular rate and rhythm without murmurs, gallops, or rubs. RESPIRATORY: Breath sounds equal bilaterally. No accessory muscle use. GASTROINTESTINAL: Abdomen soft, non-tender, nondistended. MUSCULOSKELETAL: No cyanosis, or edema. SKIN: Warm and dry. NEURO: No focal neurological deficitis. Medications and IVs Administered Medications Medications (Trade) Dose Ordered Sig/Taran Route PRN Reason Start Time Stop Time Status Last Admin Dose Admin Sodium Chloride (NS Flush) 2 ml BID IV FLUSH 11/07/16 21:00 11/09/16 08:50 Carvedilol (Coreg) 3.125 mg Q12HR PO 11/07/16 21:00 11/09/16 08:50 Aspirin (Ecotrin Ec) 81 mg DAILY PO 11/08/16 09:00 11/09/16 08:50 Pantoprazole Sodium (Protonix) 40 mg DAILY PO 11/08/16 09:00 11/09/16 08:51 Amlodipine Besylate (Norvasc) 2.5 mg DAILY PO 11/08/16 18:45 11/09/16 08:50 A/P Problem List: (1) Abdominal pain ICD Code: R10.9 (2) Chest pain ICD Code: R07.9 Assessment and Plan Assessment and plan 51-year-old female admitted for chest pain and right upper quadrant pain, with suspected biliary obstruction related to biliary stent Chest pain Negative workup Heart Negative Cardiology following Right upper quadrant abdominal pain History of cholecystectomy History of biliary stent Suspected biliary obstruction Etiology is likely secondary to a retained or occluded biliary stent Plan for EGD tomorrow to remove biliary stent GI following DVT prophylaxis Heparin Problem Qualifiers (1) Chest pain: Qualified Code: R07.9 - Chest pain, unspecified type Dennis Burden MD Nov 09, 2016 16:40
[2016-11-09] MEDS: oxyCODONE/ACETAMINOPHEN 5 MG/325 MG TAB PO PRN (19:28)
[2016-11-09] MEDS ORDERED: SODIUM CHLORIDE 0.9% FLUSH 10 ML FLUSH SCH (21:00)
[2016-11-09] MEDS ORDERED: HEPARIN SODIUM - SQ 10,000 UNITS/ML VIAL SQ SCH (22:00)
[2016-11-10] VITALS (9 sets, daily range): BP systolic 103–146; BP diastolic 57–98; PULSE 63–81; RESP 16–20; TEMP 97.2–98.6; O2SAT 95–99
[2016-11-10 07:59] LABS: HEMATOCRIT 38.6 % (35.0-46.0); MEAN CELL VOLUME 82.9 FL (80.0-100.0); MEAN CORPUSCULAR HEMOGLOBIN 26.6 PG (27.0-34.0); MEAN CORPUSCULAR HGB CONC 32.1 % (32.0-36.0); PLATELET COUNT 269 TH/MM3 (150-450); RED BLOOD COUNT 4.66 MIL/MM3 (4.00-5.30); REVIEW FLAG FINAL; WHITE BLOOD COUNT 14.2 TH/MM3 (4.0-11.0)
[2016-11-10 08:10] LABS: BICARBONATE 28.4 MEQ/L (21.0-32.0); INDIRECT BILIRUBIN 0.2 MG/DL (0.0-0.8); POTASSIUM 3.7 MEQ/L (3.5-5.1); TOTAL BILIRUBIN ADULT 0.3 MG/DL (0.2-1.0)
[2016-11-10] MEDS: CARVEDILOL 3.125 MG TAB PO SCH ×3 (09:19→22:03)
[2016-11-10] MEDS: ASPIRIN EC 81 MG TABEC PO SCH (09:19)
[2016-11-10] MEDS: amLODIPine BESYLATE 5 MG TAB PO SCH (09:19)
[2016-11-10] MEDS: PANTOPRAZOLE SOD 40 MG DELAYED RELEASE TAB PO SCH (09:20)
[2016-11-10] MEDS: SODIUM CHLORIDE 0.9% FLUSH 10 ML FLUSH IV FLUSH SCH ×2 (09:20→22:00)
--- NOTE | 2016-11-10 11:20 | PD.CARD.PN ---
Subjective Subjective Remarks Doing well, no chest pain, no shortness of breath No events over night Objective Medications Current Medications Medications (Trade) Dose Ordered Sig/Taran Route Start Time Stop Time Status Last Admin (NS Flush) 2 ml UNSCH PRN IV FLUSH 11/07/16 15:15 (NS Flush) 2 ml BID IV FLUSH 11/07/16 21:00 11/10/16 09:20 (Coreg) 3.125 mg Q12HR PO 11/07/16 21:00 11/10/16 09:19 (Ecotrin Ec) 81 mg DAILY PO 11/08/16 09:00 11/10/16 09:19 (Nitrostat Sl) 0.3 mg Q5M PRN SL 11/07/16 15:15 (Protonix) 40 mg DAILY PO 11/08/16 09:00 11/10/16 09:20 (Norvasc) 2.5 mg DAILY PO 11/08/16 18:45 11/10/16 09:19 (Percocet 5-325 Mg) 1 tab Q4H PRN PO 11/09/16 11:00 (Percocet 5-325 Mg) 2 tab Q4H PRN PO 11/09/16 11:00 11/09/16 19:28 (Atropine Inj) 0.5 mg UNSCH PRN IV 11/09/16 11:00 (Zofran Inj) 4 mg Q4H PRN IV 11/09/16 11:00 Vital Signs / I&O Vital Signs Date Time Temp Pulse Resp B/P Pulse Ox O2 Delivery O2 Flow Rate FiO2 11/10/16 10:54 99 21 11/10/16 08:00 98.1 75 20 134/87 98 11/10/16 03:45 97.2 63 16 119/79 99 11/09/16 23:17 97.2 75 16 141/83 97 11/09/16 21:50 Room Air 11/09/16 20:00 81 11/09/16 20:00 81 11/09/16 19:32 97.4 87 16 146/91 96 11/09/16 17:33 21 11/09/16 16:00 97.6 76 20 131/76 94 11/09/16 14:14 98 Room Air 11/09/16 11:43 96 21 I/O 611/09/16 11/09/16 11/10/16 11/10/16 11/10/16 07:00 15:00 23:00 07:00 15:00 23:00 Intake Total 0 ml 0 ml 360 ml 0 ml Output Total 700 ml 400 ml Balance -700 ml 0 ml -40 ml 0 ml Intake Oral 0 ml 0 ml 360 ml 0 ml Output Urine Total 700 ml 400 ml # Voids 3 4 # Bowel Movements 0 0 0 Physical Exam GENERAL: NAD, AAOx3 SKIN: Warm and dry. HEAD: Atraumatic. Normocephalic. EYES: Pupils equal and round. No scleral icterus. No injection or drainage. ENT: No nasal bleeding or discharge. Mucous membranes pink and moist. NECK: Trachea midline. No JVD. CARDIOVASCULAR: Regular rate and rhythm. RESPIRATORY: No accessory muscle use. Clear to auscultation. Breath sounds equal bilaterally. GASTROINTESTINAL: Abdomen soft, mildly tender RUQ, nondistended. Hepatic and splenic margins not palpable. MUSCULOSKELETAL: Extremities without clubbing, cyanosis, or edema. No obvious deformities. Right radial no hematoma, neurovascularly intact. Right femoral soft, no hematoma/bruit NEUROLOGICAL: Awake and alert. No obvious cranial nerve deficits. Motor grossly within normal limits. Five out of 5 muscle strength in the arms and legs. Normal speech. PSYCHIATRIC: Appropriate mood and affect; insight and judgment normal. Laboratory Laboratory Tests Test 11/10/16 06:38 White Blood Count 14.2 TH/MM3 Red Blood Count 4.66 MIL/MM3 Hemoglobin 12.4 GM/DL Hematocrit 38.6 % Mean Corpuscular Volume 82.9 FL Mean Corpuscular Hemoglobin 26.6 PG Mean Corpuscular Hemoglobin 32.1 % Concent Red Cell Distribution Width 15.0 % Platelet Count 269 TH/MM3 Mean Platelet Volume 9.6 FL Sodium Level 141 MEQ/L Potassium Level 3.7 MEQ/L Chloride Level 105 MEQ/L Carbon Dioxide Level 28.4 MEQ/L Anion Gap 8 MEQ/L Blood Urea Nitrogen 18 MG/DL Creatinine 0.71 MG/DL Estimat Glomerular Filtration 106 ML/MIN Rate Random Glucose 96 MG/DL Calcium Level 9.7 MG/DL Total Bilirubin 0.3 MG/DL Direct Bilirubin 0.1 MG/DL Indirect Bilirubin 0.2 MG/DL Aspartate Amino Transf 41 U/L (AST/SGOT) Alanine Aminotransferase 141 U/L (ALT/SGPT) Alkaline Phosphatase 191 U/L Total Protein 7.5 GM/DL Albumin 3.2 GM/DL Assessment and Plan Problem List: (1) Chest pain (2) Hypertension (3) Abdominal pain Assessment and Plan 1) Atypical chest pain, but with abnormal EKG sent for myocardial perfusion stress test which was abnormal MPI showing distal apical perfusion defect, catheterization yesterday showing minimal CAD 2) EF 55-60%, mild LVH 3) Cardiovascularly stable for ERCP, discussed with GI 4) 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
--- NOTE | 2016-11-10 17:12 | HHI.PR ---
Subjective Remarks EGD pending for today. Patient has no complaints. No chest pain today. Check she has slight improvement in right upper quadrant pain. Objective Vital Signs Date Time Temp Pulse Resp B/P Pulse Ox O2 Delivery O2 Flow Rate FiO2 11/10/16 12:00 98.0 66 20 138/87 98 11/10/16 10:54 99 21 11/10/16 08:00 98.1 75 20 134/87 98 11/10/16 08:00 72 11/10/16 03:45 97.2 63 16 119/79 99 11/09/16 23:17 97.2 75 16 141/83 97 11/09/16 21:50 Room Air 11/09/16 20:00 81 11/09/16 20:00 81 11/09/16 19:32 97.4 87 16 146/91 96 11/09/16 17:33 21 I/O 11/09/16 11/09/16 11/09/16 11/10/16 11/10/16 11/10/16 07:00 15:00 23:00 07:00 15:00 23:00 Intake Total 0 ml 0 ml 360 ml 0 ml Output Total 700 ml 400 ml Balance -700 ml 0 ml -40 ml 0 ml Intake Oral 0 ml 0 ml 360 ml 0 ml Output Urine Total 700 ml 400 ml # Voids 3 4 # Bowel Movements 0 0 0 Result Diagram: 11/10/16 0638 11/10/16 0638 Objective Remarks GENERAL: NAD, A&Ox3 HEAD: Normocephalic. NECK: Supple, trachea midline. No lymphadenopathy. EYES: No scleral icterus. No injection or drainage. CARDIOVASCULAR: Regular rate and rhythm without murmurs, gallops, or rubs. RESPIRATORY: Breath sounds equal bilaterally. No accessory muscle use. GASTROINTESTINAL: Abdomen soft, non-tender, nondistended. MUSCULOSKELETAL: No cyanosis, or edema. SKIN: Warm and dry. NEURO: No focal neurological deficitis. A/P Problem List: (1) Abdominal pain ICD Code: R10.9 (2) Chest pain ICD Code: R07.9 Assessment and Plan Assessment and plan 51-year-old female admitted for chest pain and right upper quadrant pain, with suspected biliary obstruction related to biliary stent. EGD today. If patient is doing well post procedure, tolerating diet, and has decreased pain through tomorrow she may be considered for discharge tomorrow. Chest pain Negative workup Heart Negative Cardiology following Right upper quadrant abdominal pain History of cholecystectomy History of biliary stent Suspected biliary obstruction Etiology is likely secondary to a retained or occluded biliary stent Plan for EGD tomorrow to remove biliary stent GI following DVT prophylaxis Heparin Problem Qualifiers (1) Chest pain: Qualified Code: R07.9 - Chest pain, unspecified type Dennis Burden MD Nov 10, 2016 17:12
[2016-11-10] MEDS ORDERED: PROPOFOL 200 MG/20 ML AMP IV ONE (18:54)
[2016-11-10] MEDS ORDERED: IOHEXOL 300 MG/ML 50 ML BTL (for RAD DIAG) IV ONE (18:54)
--- NOTE | 2016-11-10 19:23 | PD.PROCEDR ---
GI Procedure REFERRING PHYSICIAN Anika PROCEDURE PERFORMED ERCP with stent removal and sphincterotomy balloon extraction INDICATION FOR PROCEDURE Choledocholithiasis PROCEDURE: The procedure, risks and benefits were discussed with Ms. Osorio and informed consent was obtained. Anesthesia sedated her with Diprivan. She was placed in the left lateral decubitus position. ERCP: Patient was placed in a prone position. The Pentax videoscope was introduced through the oropharynx and advanced to the second portion of the duodenum where the ampula was identified. FINDINGS: The ampulla was identified this had a prior stent protruding through it and this was removed using a snare we were able to obtain easy cannulation of the common bile duct which was slightly dilated and was full with multiple filling defects a sphincterotomy was performed then using a 12 mm balloon we were able to extract multiple stones then the bile duct was lavaged with saline then an obstructive cholangiogram was performed and this showed the bile duct to be free of filling defects but we did note a distal CBD mild narrowing and this may have resulted from the patient having had the biliary stent and for 7 years apparently she did not know she needed to come back and have it removed ESTIMATED BLOOD LOSS: None SPECIMENS REMOVED: None COMPLICATIONS: None IMPRESSION: Choledocholithiasis Mild distal CBD narrowing PLAN: Monitor labs Continue with current supportive care Dio Motnes MD Nov 10, 2016 19:23
--- NOTE | 2016-11-10 19:37 | RADRPT ---
EXAM DATE/TIME: 11/10/2016 19:10 [place] COMPARISON: GI LAB ERCP, September 29, 2009, 13:04. INDICATIONS : ERCP. history of biliary obstruction and placement of stent catheter. FLUORO TIME: 2.13 minutes IMAGE COUNT: 3 CONTRAST: Instilled by Ordering Physician MEDICAL HISTORY : Hypertension. Uterine fibroids. SURGICAL HISTORY : Hysterectomy. Bilateral hand surgery. Fibroid removal. ENCOUNTER: Initial ACUITY: 1 day PAIN SCORE: Non-responsive. LOCATION: abdomen FINDINGS: An ERCP was performed by the ordering physician. 3 coned-down images of the upper abdomen were obtained using a matrix camera and demonstrate the endo scope in Place with cannulization of the common bile duct on image #1. A balloon is noted in the dist al duct on image #2. The common bile duct is mildly prominent. The third image demonstrates no fillin g defect in the duct. CONCLUSION: ERCP as above. Joshua Mota MD on November 10, 2016 at 19:32 Board Certified Radiologist. This report was verified electronically.
[2016-11-10] MEDS ORDERED: MORPHINE SULFATE 4 MG/ML INJ ONE (19:39)
[2016-11-10] MEDS: oxyCODONE/ACETAMINOPHEN 5 MG/325 MG TAB PO PRN (22:04)
[2016-11-11 03:55] VITALS: BP 102/58; PULSE 71; RESP 16; TEMP 98.3; O2SAT 93
[2016-11-11 08:00] VITALS: BP 120/74; PULSE 72; RESP 18; TEMP 97.9; O2SAT 96
[2016-11-11] MEDS: amLODIPine BESYLATE 5 MG TAB PO SCH (08:26)
[2016-11-11] MEDS: CARVEDILOL 3.125 MG TAB PO SCH (08:26)
[2016-11-11] MEDS: PANTOPRAZOLE SOD 40 MG DELAYED RELEASE TAB PO SCH (08:26)
[2016-11-11] MEDS: SODIUM CHLORIDE 0.9% FLUSH 10 ML FLUSH IV FLUSH SCH (08:26)
[2016-11-11] MEDS: ASPIRIN EC 81 MG TABEC PO SCH (08:26)
[2016-11-11] MEDS ORDERED: CARV3.125 PO (10:34)
[2016-11-11] MEDS ORDERED: AMLO5 PO (10:34)
[2016-11-11] MEDS ORDERED: ASPI-99 PO (10:34)
[2016-11-11] MEDS ORDERED: WALKER/ADULT/FO1 MIS (10:36)
--- NOTE | 2016-11-11 10:40 | HHI.DS ---
Discharge Summary Admission Date Nov 08, 2016 at 14:51 Discharge Date: Nov 11, 2016 Admitting Diagnosis Chest pain (1) Right leg paresthesias ICD Code: R20.2 Diagnosis: Secondary (2) Chest pain ICD Code: R07.9 Diagnosis: Principal Procedures Heart catheter, EGD Brief History - From Admission patient seen today around 4 PM. 51-year-old female with history of hypertension,, uterine fibroids, chronic smoking, who presents with acute onset sharp, intermittent, nonradiating right- sided chest pain. She does report some diaphoresis which has resolved. She denies any nausea or vomiting. Denies any shortness of breath. CBC/BMP: 11/10/16 0638 11/10/16 0638 Significant Findings Laboratory Tests Test 11/08/16 11/10/16 12:39 06:38 Aspartate Amino Transf 69 U/L (15-37) 41 U/L (15-37) (AST/SGOT) Alanine Aminotransferase 190 U/L (10-53) 141 U/L (10-53) (ALT/SGPT) Alkaline Phosphatase 195 U/L 191 U/L (45-117) (45-117) Albumin 3.2 GM/DL 3.2 GM/DL (3.4-5.0) (3.4-5.0) White Blood Count 14.2 TH/MM3 (4.0-11.0) Mean Corpuscular Hemoglobin 26.6 PG (27.0-34.0) PE at Discharge GENERAL: Well-developed well-nourished. In no acute distress. SKIN: Warm and dry. No lesions noted. HEENT: Normocephalic. Pupils equal and round. Mucous membranes pink and moist. CARDIOVASCULAR: Regular rate and rhythm. No murmur appreciated. No chest wall TTP. RESPIRATORY: No accessory muscle use. Clear to auscultation. Breath sounds equal bilaterally. GASTROINTESTINAL: Abdomen soft, nondistended. Significant epigastric and right upper quadrant TTP. Positive Santiago sign. MUSCULOSKELETAL: No obvious deformities. No clubbing or cyanosis. No edema. NEUROLOGICAL: Awake and alert. No focal neurological deficits. Moves upper and lower extremities spontaneously. Normal speech. PSYCHIATRIC: Appropriate mood and affect; insight and judgment normal. Hospital Course Mrs. Osorio is a 51-year-old female. She was admitted with chest pain and right upper quadrant pain. Chest pain workup was negative except for some mild coronary artery disease. Her right upper quadrant pain was found to be secondary to a retained biliary stent. Biliary stent was removed yesterday and pain has resolved. Patient is now medically stable and cleared for discharge to home. She does have some chronic right leg weakness and requested a walker for this. Discharge today. Blood pressure treatment have been adjusted (below ) and aspirin started given coronary artery disease. Pt Condition on Discharge: Stable Discharge Disposition: Discharge Home Discharge Time: <= 30 minutes Discharge Instructions DIET: Follow Instructions for: As Tolerated, No Restrictions Activities you can perform: Regular-No Restrictions Follow up Referrals: Gastroenterology with Dio Montes MD New Medications: Walker/Adult/Folding (Walker/Adult/Folding) 1 Mis Mis 1 EA .ROUTE DIRECTED Weakness #1 Ref 0 EA Amlodipine (Norvasc) 5 Mg Tab 2.5 MG PO DAILY Blood Pressure Management #[address] (Adult Aspirin EC Low Strength) 81 Mg Tabec 81 MG PO DAILY Blood Clot Prevention #30 TAB Carvedilol (Coreg) 3.125 Mg Tab 3.125 MG PO Q12HR Blood Pressure Management #60 TAB Dennis Burden MD Nov 11, 2016 10:40
[2016-11-11 12:00] VITALS: BP 124/73; PULSE 97; RESP 20; TEMP 98.4; O2SAT 99
--- NOTE | 2016-11-11 13:25 | PD.CARD.PN ---
Subjective Subjective Remarks No events over night, no chest pain Objective Medications Current Medications Sodium Chloride 2 ml 2 ml UNSCH PRN IVF FLUSH AFTER USING IV ACCESS; Start at 12:00; Stop 11/07/16 at 15:37; Status DC Magnesium Sulfate/ Dextrose (Magnesium Sulfate 1 Gm Premix) 100 ml @ 100 mls/ hr ONCE ONCE IV Last administered on 11/07/16 13:15; Start 11/07/16 at 13:00 ; Stop 11/07/16 at 15:06; Status DC Potassium Chloride 30 meq 30 meq ONCE ONCE PO Last administered on 11/07/16 13:16; Start 11/07/16 at 13:15; Stop 11/07/16 at 13:16; Status DC Potassium Chloride (KCl 20 Meq Premix Inj) 100 ml @ 50 mls/hr Q2H IV Last administered on 11/07/16 13:17; Start 11/07/16 at 13:15; Stop 11/07/16 at 15:07 ; Status DC Sodium Chloride (NS Flush) 2 ml UNSCH PRN IV FLUSH FLUSH AFTER USING IV ACCESS ; Start 11/07/16 at 15:15; Stop 11/11/16 at 13:04; Status DC Sodium Chloride (NS Flush) 2 ml BID IV FLUSH Last administered on 11/11/16 08: 26; Start 11/07/16 at 21:00; Stop 11/11/16 at 13:04; Status DC Carvedilol (Coreg) 3.125 mg ONCE ONCE PO Last administered on 11/07/16 16:18 ; Start 11/07/16 at 15:15; Stop 11/07/16 at 15:35; Status DC Carvedilol (Coreg) 3.125 mg Q12HR PO Last administered on 11/11/16 08:26; Start 11/07/16 at 21:00; Stop 11/11/16 at 13:04; Status DC Aspirin (Ecotrin Ec) 81 mg DAILY PO Last administered on 11/11/16 08:26; Start 11/08/16 at 09:00; Stop 11/11/16 at 13:04; Status DC Nitroglycerin (Nitrostat Sl) 0.3 mg Q5M PRN SL CHEST PAIN; Start 11/07/16 at 15 :15; Stop 11/11/16 at 13:04; Status DC Pantoprazole Sodium (Protonix) 40 mg DAILY PO Last administered on 11/11/16 08 :26; Start 11/08/16 at 09:00; Stop 11/11/16 at 13:04; Status DC Regadenoson (Lexiscan Inj) 0.4 mg STK-MED ONCE .ROUTE Last administered on 11/08 10:05; Start 11/08/16 at 10:05; Stop 11/08/16 at 10:06; Status DC Amlodipine Besylate 2.5 mg 2.5 mg DAILY PO Last administered on 11/11/16 08:26 ; Start 11/08/16 at 18:45; Stop 11/11/16 at 13:04; Status DC Heparin Sodium/ Sodium Chloride (Heparin-NS/Pf Inj) 500 ml @ As Directed STK- MED ONCE .ROUTE Last administered on 11/09/16 08:37; Start 11/09/16 at 08:37; Stop 11/09/16 at 08:38; Status DC Midazolam HCl (Versed Inj) 2 mg STK-MED ONCE .ROUTE Last administered on 10:27; Start 11/09/16 at 08:38; Stop 11/09/16 at 08:39; Status DC Fentanyl Citrate 100 mcg 100 mcg STK-MED ONCE .ROUTE Last administered on 10:28; Start 11/09/16 at 08:38; Stop 11/09/16 at 08:39; Status DC Nitroglycerin (Nitroglycerin Inj) 5 ml @ As Directed STK-MED ONCE .ROUTE Last administered on 11/09/16 10:10; Start 11/09/16 at 08:38; Stop 11/09/16 at 08:39 ; Status DC Verapamil HCl (Isoptin Inj) 5 mg STK-MED ONCE .ROUTE Last administered on 10:10; Start 11/09/16 at 08:39; Stop 11/09/16 at 08:40; Status DC Heparin Sodium (Porcine) (Heparin Inj) 10,000 units STK-MED ONCE .ROUTE Last administered on 11/09/16 10:10; Start 11/09/16 at 08:39; Stop 11/09/16 at 08:40 ; Status DC Diphenhydramine HCl (Benadryl Inj) 50 mg STK-MED ONCE .ROUTE Last administered on 11/09/16 09:44; Start 11/09/16 at 09:28; Stop 11/09/16 at 09:29; Status DC Methylprednisolone Sodium Succinate 125 mg 125 mg STK-MED ONCE .ROUTE Last administered on 11/09/16 09:37; Start 11/09/16 at 09:28; Stop 11/09/16 at 09:29 ; Status DC Heparin Sodium/ Sodium Chloride (Heparin-NS/Pf Inj) 500 ml @ As Directed STK- MED ONCE .ROUTE ; Start 11/09/16 at 10:21; Stop 11/09/16 at 10:22; Status DC Sodium Chloride (NS Flush) 2 ml BID .XX ; Start 11/09/16 at 21:00; Stop at 21:00; Status DC Sodium Chloride (NS Flush) 2 ml UNSCH PRN .XX FLUSH AFTER USING IV ACCESS; Start 11/09/16 at 11:00; Stop 11/09/16 at 11:15; Status DC Oxycodone/ Acetaminophen (Percocet 5-325 Mg) 1 tab Q4H PRN PO PAIN SCALE 1 TO 4; Start 11/09/16 at 11:00; Stop 11/11/16 at 13:04; Status DC Oxycodone/ Acetaminophen (Percocet 5-325 Mg) 2 tab Q4H PRN PO PAIN SCALE 5 TO 10 Last administered on 11/10/16 22:04; Start 11/09/16 at 11:00; Stop 11/11/16 at 13:04; Status DC Miscellaneous Information 1 ONCE ONCE XX ; Start 11/09/16 at 11:00; Stop at 11:19; Status DC Atropine Sulfate 0.5 mg 0.5 mg UNSCH PRN IV VAGAL REPONSE; Start 11/09/16 at 11 :00; Stop 11/11/16 at 13:04; Status DC Sodium Chloride (NS 250 ml Inj) 250 ml @ 500 mls/hr ONCE PRN IV VAGAL REPONSE ; Start 11/09/16 at 11:00; Stop 11/10/16 at 10:59; Status DC Ondansetron HCl (Zofran Inj) 4 mg Q4H PRN IV NAUSEA Last administered on 21:54; Start 11/09/16 at 11:00; Stop 11/11/16 at 13:04; Status DC Heparin Sodium (Porcine) (Heparin Inj) 5,000 units Q8HR SQ Last administered on 11/09/16 21:33; Start 11/09/16 at 22:00; Stop 11/09/16 at 23:00; Status DC Iohexol (OMNIPAQUE 350 INJ (Aircraft Systems Technician)) 100 ml STK-MED ONCE OTHER ; Start at 09:20; Stop 11/10/16 at 12:22; Status DC Morphine Sulfate (Morphine Inj) 4 mg STK-MED ONCE .ROUTE ; Start 11/10/16 at 19: 39; Stop 11/10/16 at 19:40; Status DC Iohexol (Omnipaque 300 Inj) 50 ml STK-MED ONCE IV Last administered on 18:54; Start 11/10/16 at 18:54; Stop 11/10/16 at 19:53; Status DC Propofol (Diprivan 200 Mg/20 ml Inj) 600 mg STK-MED ONCE IV ; Start 11/10/16 at 18:54; Stop 11/10/16 at 20:47; Status DC Vital Signs / I&O Vital Signs Date Time Temp Pulse Resp B/P Pulse Ox O2 Delivery O2 Flow Rate FiO2 11/11/16 12:00 98.4 97 20 124/73 99 11/11/16 09:59 Room Air 21 11/11/16 08:00 97.9 72 18 120/74 96 11/11/16 03:55 98.3 71 16 102/58 93 11/11/16 00:00 Room Air 11/10/16 23:13 98.6 81 16 103/57 95 11/10/16 20:30 Room Air 11/10/16 20:19 74 11/10/16 20:15 97.5 70 16 144/84 95 11/10/16 19:50 77 20 149/93 96 11/10/16 19:32 97.7 76 20 147/94 98 11/10/16 16:00 98.0 71 20 146/98 97 11/10/16 15:00 72 I/O 11/10/16 11/10/16 11/10/16 11/11/16 11/11/16 11/11/16 07:00 15:00 23:00 07:00 15:00 23:00 Intake Total 0 ml 0 ml 940 ml 300 ml Output Total 600 ml 500 ml 250 ml Balance 0 ml -600 ml 440 ml 50 ml Intake Oral 0 ml 0 ml 240 ml 300 ml Other 700 ml Output Urine Total 600 ml 500 ml 250 ml # Voids 4 # Bowel Movements 0 0 0 0 Physical Exam GENERAL: NAD, AAOx3 SKIN: Warm and dry. HEAD: Atraumatic. Normocephalic. EYES: Pupils equal and round. No scleral icterus. No injection or drainage. ENT: No nasal bleeding or discharge. Mucous membranes pink and moist. NECK: Trachea midline. No JVD. CARDIOVASCULAR: Regular rate and rhythm. RESPIRATORY: No accessory muscle use. Clear to auscultation. Breath sounds equal bilaterally. GASTROINTESTINAL: Abdomen soft, nondistended. Hepatic and splenic margins not palpable. MUSCULOSKELETAL: Extremities without clubbing, cyanosis, or edema. No obvious deformities. Right radial no hematoma, neurovascularly intact. Right femoral soft, no hematoma/bruit NEUROLOGICAL: Awake and alert. No obvious cranial nerve deficits. Motor grossly within normal limits. Five out of 5 muscle strength in the arms and legs. Normal speech. PSYCHIATRIC: Appropriate mood and affect; insight and judgment normal. 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
== END 2016-11-11 13:04 | disposition home or self-care (01) | DRG 287 ==
LOC: NEPE 11:39 → NEDA 13:59 → NEPGCP 16:31 → NEDA 21:26 → OBSVTOIN 11-08 14:51 → N04B 11-08 17:55
PROVIDERS: ADMIT Hospitalist; ATTEND Hospitalist
PROC: B2111ZZ Fluoroscopy of Multiple Coronary Arteries using Low Osmolar Contrast (ICD-10-PCS; 2016-11-09)
PROC: B2151ZZ Fluoroscopy of Left Heart using Low Osmolar Contrast (ICD-10-PCS; 2016-11-09)
PROC: 4A023N7 Measurement of Cardiac Sampling and Pressure, Left Heart, Percutaneous Approach (ICD-10-PCS; principal; 2016-11-09 09:45)
PROC: 0FPB8DZ Removal of Intraluminal Device from Hepatobiliary Duct, Via Natural or Artificial Opening Endoscopic (ICD-10-PCS; 2016-11-10)
PROC: 0F798DZ Dilation of Common Bile Duct with Intraluminal Device, Via Natural or Artificial Opening Endoscopic (ICD-10-PCS; 2016-11-10)
DX: R07.89 Other chest pain (principal); I11.9 Hypertensive heart disease without heart failure; I25.10 Atherosclerotic heart disease of native coronary artery without angina pectoris; E78.5 Hyperlipidemia, unspecified; E87.6 Hypokalemia; K21.9 Gastro-esophageal reflux disease without esophagitis; K80.70 Calculus of gallbladder and bile duct without cholecystitis without obstruction; F17.210 Nicotine dependence, cigarettes, uncomplicated; Z80.0 Family history of malignant neoplasm of digestive organs
CPT/HCPCS: 71010; 74330; 76705; 78452; 80048; 80061; 80069; 80076; 82550; 83735; 84155; 84484; 84703; 85002; 85025; 85027; 85347; 85610; 85730; 93005; 93017; 93306; 93454; 96365; 96368; A9502; C1769; C1893; G0378; J1200; J1644; J2250; J2270; J2405; J2785; J2930; J3010; J3475; J3480; Q9967

== ENCOUNTER 2017-08-17 22:03 | Observation (INO) | payer BC ==
[~2017-08-17] VITALS: Ht 165.1 cm; Wt 85.0 kg
[~2017-08-17 22:03] MED LIST changes: +AMLO5 PO; -AMLO5TAB2 PO; +ASPI1TAB56 PO; +CARV3.125 PO; -MECL-62 PO; +WALKER/ADULT/FO1 MIS
[2017-08-17 22:37] VITALS: BP 164/102; PULSE 70; RESP 20; TEMP 98; O2SAT 98
--- NOTE | 2017-08-17 22:52 | PD ---
HPI Chief Complaint: Chest Pain Time Seen by Provider: 22:45 Travel History International Travel<30 days: No Contact w/Intl Traveler<30days: No Traveled to known affect area: No History of Present Illness HPI 52-year-old female with history of hypertension here for evaluation of chest pain. The patient reports intermittent episodes of substernal chest pressure over the last week. There are no modifying factors. Currently the pain is 7 out of 10, described as pressure, nonradiating. No fevers, chills, cough, or recent illness. No paresthesias or motor deficits. Chart review shows that in October of last year the patient had a cardiac cath performed for an abnormal stress and EKG and showed minimal CAD with tortuosity with recommendation to continue antihypertensives. Patient reports compliance with amlodipine. She took 81 mg of aspirin prior to arrival. PFSH Past Medical History Anemia: Yes Asthma: No Blood Disorders: No Anxiety: No Depression: No Heart Rhythm Problems: No Cancer: No Cardiovascular Problems: Yes High Cholesterol: No Chemotherapy: No Chest Pain: Yes Congestive Heart Failure: No COPD: No Diabetes: No Diminished Hearing: No Endocrine: No Gastrointestinal Disorders: Yes GERD: Yes Genitourinary: No Headaches: Yes Hypertension: Yes Immune Disorder: No Implanted Vascular Access Dvce: No Musculoskeletal: Yes Neurologic: Yes Psychiatric: No Reproductive: Yes (FIBROIDS) Respiratory: Yes Immunizations Current: No Radiation Therapy: No Sleep Apnea: No Thyroid Disease: No Tetanus Vaccination: Unknown Influenza Vaccination: No ?: Unknown : 0 Para: 0 Miscarriage: 0 : 0 Past Surgical History Abdominal Surgery: No AICD: No Arteriovenous Shunt: No Cardiac Surgery: No Cholecystectomy: Yes Gynecologic Surgery: Yes (FIBROID UTERUS) Hysterectomy: Yes Insulin Pump: No Joint Replacement: No Neurologic Surgery: No Pacemaker: No Other Surgery: Yes (fibroid tumor removal, hysterectomy) Social History Alcohol Use: Yes (OCCASSIONALLY) Tobacco Use: Yes (1- 2 CIG PER DAY ) Substance Use: No Allergies-Medications (Allergen,Severity, Reaction): Coded Allergies: No Known Allergies (Verified Adverse Reaction, Unknown, 08/17/17) Reported Meds & Prescriptions Reported Meds & Active Scripts Active Adult Aspirin EC Low Strength (Aspirin) 81 Mg Tabec 81 Mg PO DAILY Reported Norvasc (Amlodipine Besylate) 5 Mg Tab 5 Mg PO DAILY Review of Systems Except as stated in HPI: all other systems reviewed are Neg Physical Exam Narrative GENERAL: Well-developed, well-nourished, comfortable, no apparent distress. SKIN: Focused skin assessment warm/dry. No rash. HEAD: Atraumatic. Normocephalic. EYES: Pupils equal and round. No scleral icterus. No injection or drainage. ENT: Mucous membranes pink and moist. NECK: Trachea midline. No JVD. CARDIOVASCULAR: Regular rate and rhythm. No murmur appreciated. RESPIRATORY: No accessory muscle use. Clear to auscultation. Breath sounds equal bilaterally. GASTROINTESTINAL: Abdomen soft, non-tender, nondistended. MUSCULOSKELETAL: No obvious deformities. No clubbing. No cyanosis. No edema. NEUROLOGICAL: Awake and alert. No obvious cranial nerve deficits. Motor grossly within normal limits. Normal speech. PSYCHIATRIC: Appropriate mood and affect; insight and judgment normal. Data Data Last Documented VS Vital Signs Date Time Temp Pulse Resp B/P (MAP) Pulse Ox O2 Delivery O2 Flow Rate FiO2 08/17/17 22:37 98.0 70 20 164/102 (122) 98 Orders Orders Electrocardiogram (08/17/17 22:49) Ckmb (Isoenzyme) Profile (08/17/17 22:49) Complete Blood Count With Diff (08/17/17 22:49) Comprehensive Metabolic Panel (08/17/17 22:49) Magnesium (Mg) (08/17/17 22:49) Prothrombin Time / Inr (Pt) (08/17/17 22:49) Act Partial Throm Time (Ptt) (08/17/17 22:49) Troponin I (08/17/17 22:49) Lipase (08/17/17 22:49) Chest, Single Ap (08/17/17 22:49) Ecg Monitoring (08/17/17 22:49) Iv Access Insert/Monitor (08/17/17 22:49) Oximetry (08/17/17 22:49) Aspirin Chew (Aspirin Chew) (08/17/17 23:00) Sodium Chloride 0.9% Flush (Ns Flush) (08/17/17 23:00) Nitroglycerin Sl (Nitrostat Sl) (08/17/17 23:00) CKMB (08/17/17 23:10) CKMB% (08/17/17 23:10) Potassium Chloride (Kcl) (08/18/17 00:30) Labs Laboratory Tests Test 08/17/17 23:10 White Blood Count 7.4 TH/MM3 Red Blood Count 4.63 MIL/MM3 Hemoglobin 12.5 GM/DL Hematocrit 37.8 % Mean Corpuscular Volume 81.7 FL Mean Corpuscular Hemoglobin 27.1 PG Mean Corpuscular Hemoglobin Concent 33.1 % Red Cell Distribution Width 15.2 % Platelet Count 285 TH/MM3 Mean Platelet Volume 8.3 FL Neutrophils (%) (Auto) 47.8 % Lymphocytes (%) (Auto) 41.7 % Monocytes (%) (Auto) 7.8 % Eosinophils (%) (Auto) 2.2 % Basophils (%) (Auto) 0.5 % Neutrophils # (Auto) 3.5 TH/MM3 Lymphocytes # (Auto) 3.1 TH/MM3 Monocytes # (Auto) 0.6 TH/MM3 Eosinophils # (Auto) 0.2 TH/MM3 Basophils # (Auto) 0.0 TH/MM3 CBC Comment DIFF FINAL Differential Comment Prothrombin Time 9.7 SEC Prothromb Time International Ratio 1.0 RATIO Activated Partial Thromboplast Time 25.6 SEC Blood Urea Nitrogen 11 MG/DL Creatinine 0.88 MG/DL Random Glucose 95 MG/DL Total Protein 7.7 GM/DL Albumin 3.5 GM/DL Calcium Level 8.5 MG/DL Magnesium Level 2.4 MG/DL Alkaline Phosphatase 98 U/L Aspartate Amino Transf (AST/SGOT) 13 U/L Alanine Aminotransferase (ALT/SGPT) 21 U/L Total Bilirubin 0.2 MG/DL Sodium Level 140 MEQ/L Potassium Level 3.2 MEQ/L Chloride Level 104 MEQ/L Carbon Dioxide Level 28.9 MEQ/L Anion Gap 7 MEQ/L Estimat Glomerular Filtration Rate 82 ML/MIN Total Creatine Kinase 132 U/L Creatine Kinase MB LESS THAN 0.5 NG/ML Troponin I LESS THAN 0.02 NG/ML Lipase 175 U/L MDM Medical Decision Making Medical Screen Exam Complete: Yes Emergency Medical Condition: Yes Medical Record Reviewed: Yes Interpretation(s) EKG: Sinus, rate 69, leftward axis, LVH, extensive T-wave inversions which is unchanged from 11/07/16 Differential Diagnosis ACS, pneumothorax, pericarditis, PE, pneumonia, GERD Narrative Course Vital signs reviewed. CBC is unremarkable. CMP is remarkable for potassium 3.2 which was replaced orally, otherwise unremarkable. Lipase is 175. Cardiac enzymes are negative. Chest x-ray: Mild cardiac silhouette enlargement unchanged. No acute findings. Patient was given aspirin. She was also provided sublingual nitroglycerin, and on reassessment she is resting comfortably. She will be admitted to the chest pain center for further cardiac evaluation. She is amenable to this plan. Diagnosis Primary Impression: Chest pain Qualified Codes: R07.9 - Chest pain, unspecified Admitting Information Admitting Physician Requests: Observation Yoel Stanley MD Aug 17, 2017 22:52
[2017-08-17] MEDS ORDERED: AMLO5 PO (22:58)
[2017-08-17] MEDS ORDERED: SODIUM CHLORIDE 0.9% FLUSH 10 ML FLUSH IVF PRN (23:00)
[2017-08-17] MEDS ORDERED: ASPIRIN 81 MG CHEW TAB PO ONE (23:00)
--- NOTE | 2017-08-17 23:27 | RADRPT ---
EXAM DATE/TIME: 08/17/2017 22:55 [facility] COMPARISON: CHEST SINGLE AP, November 07, 2016, 11:46. INDICATIONS : Chest pain MEDICAL HISTORY : Hypertension. SURGICAL HISTORY : Cholecystectomy. Hysterectomy ENCOUNTER: Initial ACUITY: 1 day PAIN SCORE: 4/10 LOCATION: chest FINDINGS: Single AP view of the chest. Mild cardiac silhouette enlargement unchanged. Lungs are clear. No evide nce of pleural effusion or pneumothorax. CONCLUSION: Mild cardiac silhouette enlargement unchanged. No acute findings. Simón Link MD on August 17, 2017 at 23:24 Board Certified Radiologist. This report was verified electronically.
[2017-08-17 23:37] LABS: AUTOMATED NEUTROPHIL # 3.5 TH/MM3 (1.8-7.7); BASOPHIL % 0.5 % (0.0-2.0); EOSINOPHIL # 0.2 TH/MM3 (0-0.4); EOSINOPHIL % 2.2 % (0.0-4.0); HEMATOCRIT 37.8 % (35.0-46.0); HEMOGLOBIN 12.5 GM/DL (11.6-15.3); LYMPH % 41.7 % (9.0-44.0); LYMPHOCYTE # 3.1 TH/MM3 (1.0-4.8); MEAN CELL VOLUME 81.7 FL (80.0-100.0); MEAN CORPUSCULAR HEMOGLOBIN 27.1 PG (27.0-34.0); MEAN CORPUSCULAR HGB CONC 33.1 % (32.0-36.0); MEAN PLATELET VOLUME 8.3 FL (7.0-11.0); MONO % 7.8 % (0.0-8.0); MONOCYTE # 0.6 TH/MM3 (0-0.9); NEUT % 47.8 % (16.0-70.0); PLATELET COUNT 285 TH/MM3 (150-450); RED BLOOD COUNT 4.63 MIL/MM3 (4.00-5.30); RED CELL DISTRIBUTION WIDTH 15.2 % (11.6-17.2); WHITE BLOOD COUNT 7.4 TH/MM3 (4.0-11.0)
[2017-08-17] MEDS: NITROGLYCERIN 0.4 MG SL 25 TABS/BTL SL SCH ×3 (23:37→23:57)
[2017-08-17 23:55] LABS: PROTHROMBIN TIME - PATIENT 9.7 SEC (9.8-11.6)
[2017-08-17 23:58] LABS: ALBUMIN 3.5 GM/DL (3.4-5.0); BICARBONATE 28.9 MEQ/L (21.0-32.0); BLOOD UREA NITROGEN 11 MG/DL (7-18); CALCIUM 8.5 MG/DL (8.5-10.1); CHLORIDE 104 MEQ/L (98-107); GLUCOSE,RANDOM 95 MG/DL (74-106); MAGNESIUM 2.4 MG/DL (1.5-2.5); SODIUM (NA) 140 MEQ/L (136-145)
[2017-08-17 23:59] LABS: AST (GOT) 13 U/L (15-37); CREATININE 0.88 MG/DL (0.50-1.00); GLOMERULAR FILTRATION RATE 82 ML/MIN (>89)
[2017-08-18] VITALS: BP 133/84; PULSE 70; RESP 28; O2SAT 99
[2017-08-18 00:02] LABS: ALKALINE PHOSPHATASE 98 U/L (45-117); ALT (GPT) 21 U/L (10-53); TOTAL BILIRUBIN ADULT 0.2 MG/DL (0.2-1.0); TOTAL PROTEIN 7.7 GM/DL (6.4-8.2); TROPONIN I LESS THAN 0.02 NG/ML (0.02-0.05)
[2017-08-18 00:23] VITALS: O2SAT 98
[2017-08-18] MEDS ORDERED: SODIUM CHLORIDE 0.9% FLUSH 10 ML FLUSH IV FLUSH PRN (00:30)
[2017-08-18] MEDS ORDERED: POTASSIUM CHLORIDE 20 MEQ CONTROLLED RELEASE TAB PO ONE (00:30)
[2017-08-18 01:00] VITALS: BP 127/70; PULSE 64; RESP 21; O2SAT 99
[2017-08-18 02:40] LABS: TROPONIN I LESS THAN 0.02 NG/ML (0.02-0.05)
[2017-08-18 05:01] VITALS: BP 128/60; PULSE 60; RESP 16; TEMP 98; O2SAT 98
[2017-08-18 06:19] LABS: TROPONIN I LESS THAN 0.02 NG/ML (0.02-0.05)
[2017-08-18 07:04] VITALS: PULSE 63
[2017-08-18 07:22] VITALS: BP 130/89; PULSE 67; RESP 18; TEMP 97.8; O2SAT 99
[2017-08-18] MEDS ORDERED: SODIUM CHLORIDE 0.9% FLUSH 10 ML FLUSH IV FLUSH SCH (09:00)
--- NOTE | 2017-08-18 09:10 | HHI.HP ---
[facility] Primary Care Physician Bandar Cruz DO Chief Complaint Chest pain History of Present Illness This is a 52-year-old female with history of hypertension that presents to ED to be evaluated for chest discomfort. Patient states "it is not my heart, but what is it." She states she has had central chest tightness for 1 week as waxing and waning. Is worsened with certain type of movements. She states was more tender when the position press on her chest wall last night. Denies associated nausea, diaphoresis, shortness of breath. States she has had a cardiac workup in the past. Upon reviewing records, patient had a Lexiscan that showed some mild redistribution in the apex and then had a cardiac catheterization with Dr. Bailey that showed no significant disease but overall extensive tortuosity. Patient was started on amlodipine. States she has been compliant with the medication. 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 Her primary care physician is Dr. Cruz. Denies recent illness. Denies fevers or chills. Review of Systems General: Patient denies fevers, chills, and recent travel. HEENT: Patient denies headache, sore throat, difficulty swallowing. Cardiovascular: Has the chest discomfort as mentioned above. Denies sensation of heart beating rapidly or irregularly. No syncope. Denies diaphoresis. Respiratory: Denies shortness of breath or inspirational chest discomfort. Denies coughing wheezing or hemoptysis. GI: Patient denies nausea, vomiting, diarrhea, abdominal pain, bloody stools. Musculoskeletal: Patient denies joint pain or edema. Denies calf pain or edema. Neurovascular: Patient denies numbness, tingling, weakness in extremities. Denies headache. Endocrine: Denies polyuria and polydipsia. Hematologic: Denies easy bruising. Skin: Denies rash or itching. Past Family Social History Allergies: Coded Allergies: No Known Allergies (Verified Adverse Reaction, Unknown, 08/17/17) Past Medical History Hypertension and tobacco abuse. Denies hyperlipidemia, diabetes, and CAD. Past Surgical History Cardiac catheterization October 2016 without intervention. Reported Medications Reported Meds & Active Scripts Active Adult Aspirin EC Low Strength (Aspirin) 81 Mg Tabec 81 Mg PO DAILY Reported Norvasc (Amlodipine Besylate) 5 Mg Tab 5 Mg PO DAILY Active Ordered Medications Current Medications Medications (Trade) Dose Ordered Sig/Taran Route Start Time Stop Time Status Last Admin (NS Flush) 2 ml UNSCH PRN IVF 08/17/17 23:00 (NS Flush) 2 ml UNSCH PRN IV FLUSH 08/18/17 00:30 (NS Flush) 2 ml BID IV FLUSH 08/18/17 09:00 Physical Exam Vital Signs Vital Signs Date Time Temp Pulse Resp B/P (MAP) Pulse Ox O2 Delivery O2 Flow Rate FiO2 08/18/17 07:22 97.8 67 18 130/89 (103) 99 08/18/17 07:04 63 08/18/17 05:01 98.0 60 16 128/60 (82) 98 08/18/17 01:10 08/18/17 01:00 64 21 127/70 (89) 99 Room Air 08/18/17 00:51 18 08/18/17 00:23 98 08/18/17 00:00 70 28 133/84 (100) 99 Room Air 08/17/17 22:37 98.0 70 20 164/102 (122) 98 Physical Exam GENERAL: This is a well-nourished, well-developed patient, in no apparent distress. Patient speaks in clear complete sentences. Patient is pleasant. HEENT: Head is atraumatic and normocephalic. Neck is supple without lymphadenopathy and trachea is midline. No JVD or carotid bruits. CARDIOVASCULAR: Regular rate and rhythm without murmurs, gallops, or rubs. RESPIRATORY: Clear to auscultation. Breath sounds equal bilaterally. No wheezes , rales, or rhonchi. Chest wall is quite tender. This is worsening the symptoms that she has had for a week. No use of accessory muscles. GASTROINTESTINAL: Abdomen is nontender, nondistended. Abdomen soft. No obvious pulsatile mass or bruit. No CVA tenderness. Strong femoral pulses bilaterally. Normal bowel sounds in all quadrants. MUSCULOSKELETAL: Patient is moving upper and lower extremities freely. No calf tenderness or edema, no Homans sign. Strong pulses in upper and lower extremities. NEUROLOGICAL: Patient is alert and oriented. Cranial nerves 2-12 are grossly intact. No focal deficits and speech is clear. SKIN: No rash and turgor is normal. Laboratory Laboratory Tests Test 08/17/17 23:10 08/18/17 02:03 08/18/17 05:33 White Blood Count 7.4 Red Blood Count 4.63 Hemoglobin 12.5 Hematocrit 37.8 Mean Corpuscular Volume 81.7 Mean Corpuscular Hemoglobin 27.1 Mean Corpuscular Hemoglobin Concent 33.1 Red Cell Distribution Width 15.2 Platelet Count 285 Mean Platelet Volume 8.3 Neutrophils (%) (Auto) 47.8 Lymphocytes (%) (Auto) 41.7 Monocytes (%) (Auto) 7.8 Eosinophils (%) (Auto) 2.2 Basophils (%) (Auto) 0.5 Neutrophils # (Auto) 3.5 Lymphocytes # (Auto) 3.1 Monocytes # (Auto) 0.6 Eosinophils # (Auto) 0.2 Basophils # (Auto) 0.0 CBC Comment DIFF FINAL Differential Comment Prothrombin Time 9.7 Prothromb Time International Ratio 1.0 Activated Partial Thromboplast Time 25.6 Blood Urea Nitrogen 11 Creatinine 0.88 Random Glucose 95 Total Protein 7.7 Albumin 3.5 Calcium Level 8.5 Magnesium Level 2.4 Alkaline Phosphatase 98 Aspartate Amino Transf (AST/SGOT) 13 Alanine Aminotransferase (ALT/SGPT) 21 Total Bilirubin 0.2 Sodium Level 140 Potassium Level 3.2 Chloride Level 104 Carbon Dioxide Level 28.9 Anion Gap 7 Estimat Glomerular Filtration Rate 82 Total Creatine Kinase 132 101 116 Creatine Kinase MB LESS THAN 0.5 0.7 0.6 Troponin I LESS THAN 0.02 LESS THAN 0.02 LESS THAN 0.02 Lipase 175 Result Diagram: 08/17/17 2310 08/17/17 2310 Imaging Last 48 hours Impressions Chest X-Ray 08/17/17 [id number] Signed Impressions: Service Date/Time: August 22:55 - CONCLUSION: Mild cardiac silhouette enlargement unchanged. No acute findings. Simón Link MD Course EKGs have diffuse ST changes pattern of LVH which are similar to prior EKGs. Caprini VTE Risk Assessment Caprini VTE Risk Assessment: No/Low Risk (score <= 1) Caprini Risk Assessment Model Point Value = 1 Point Value = 2 Point Value = 3 Point Value = 5 Age 41-60 Minor surgery BMI > 25 kg/m2 Swollen legs Varicose veins or History of unexplained or recurrent spontaneous Oral contraceptives or hormone replacement Sepsis (< 1 month) Serious lung disease, including pneumonia (< 1 month) Abnormal pulmonary function Acute myocardial infarction Congestive heart failure (< 1 month) History of inflammatory bowel disease Medical patient at bed rest Age 61-74 Arthroscopic surgery Major open surgery (> 45 min) Laparoscopic surgery (> 45 min) Malignancy Confined to bed (> 72 hours) Immobilizing plaster cast Central venous access Age >= 75 History of VTE Family history of VTE Factor V Leiden Prothrombin [id number] Lupus anticoagulant Anticardiolipin antibodies Elevated serum homocysteine Heparin-induced thrombocytopenia Other congenital or acquired thrombophilia Stroke (< 1 month) Elective arthroplasty Hip, pelvis, or leg fracture Acute spinal cord injury (< 1 month) Prophylaxis Regimen Total Risk Factor Score Risk Level Prophylaxis Regimen 0-1 Low Early ambulation 2 Moderate Order ONE of the following: *Sequential Compression Device (SCD) *Heparin 5000 units SQ BID 3-4 Higher Order ONE of the following medications: *Heparin 5000 units SQ TID *Enoxaparin/Lovenox 40 mg SQ daily (WT < 150 kg, CrCl > 30 mL/min) *Enoxaparin/Lovenox 30 mg SQ daily (WT < 150 kg, CrCl > 10-29 mL/min) *Enoxaparin/Lovenox 30 mg SQ BID (WT < 150 kg, CrCl > 30 mL/min) AND/OR *Sequential Compression Device (SCD) 5 or more Highest Order ONE of the following medications: *Heparin 5000 units SQ TID (Preferred with Epidurals) *Enoxaparin/Lovenox 40 mg SQ daily (WT < 150 kg, CrCl > 30 mL/min) *Enoxaparin/Lovenox 30 mg SQ daily (WT < 150 kg, CrCl > 10-29 mL/min) *Enoxaparin/Lovenox 30 mg SQ BID (WT < 150 kg, CrCl > 30 mL/min) AND *Sequential Compression Device (SCD) Assessment and Plan Assessment and Plan * Atypical chest pain: Her symptoms appear to be musculoskeletal in nature. Patient had serial cardiac enzymes and EKGs for ruling out purposes. History of an essentially normal cardiac catheterization in October of last year. Patient to be seen by Dr. Crane of cardiology in the [facility] likely be discharged home with instructions to follow-up with PCP. Return to ED for interval issues. * Hypertension: Resume medication. * Tobacco abuse: Patient has been counseled on the importance of smoking cessation. Patient is stable at this time. She is agreeable to this plan. Daniel Cerda Aug 18, 2017 09:10
--- NOTE | 2017-08-18 09:14 | HHI.DCPOC ---
Discharge Care Plan Diagnosis: (1) Chest pain, atypical (2) Hypertension (3) Tobacco abuse Goals to Promote Your Health * To prevent worsening of your condition and complications * To maintain your health at the optimal level Directions to Meet Your Goals Take your medications as prescribed Follow your dietary instruction Follow activity as directed Keep your appointments as scheduled Take your immunizations and boosters as scheduled If your symptoms worsen call your PCP, if no PCP go to Urgent Care Center or Emergency Room Smoking is Dangerous to Your Health. Avoid second hand smoke Call the 24-hour hour crisis hotline for domestic abuse at Daniel Cerda Aug 18, 2017 09:14
[2017-08-18] MEDS ORDERED: amLODIPine BESYLATE 5 MG TAB PO SCH (10:00)
--- NOTE | 2017-08-18 10:05 | PD.CARD.PN ---
Subjective Subjective Remarks Very pleasant 52-year-old black lady whose presentation was reviewed with the advanced practitioner, chart was reviewed, the patient was seen and interviewed and examined personally. I am in agreement with the documentation is given with no additional comments. Objective Medications Current Medications Medications (Trade) Dose Ordered Sig/Taran Route Start Time Stop Time Status Last Admin (NS Flush) 2 ml UNSCH PRN IV FLUSH 08/18/17 00:30 (NS Flush) 2 ml BID IV FLUSH 08/18/17 09:00 (Norvasc) 5 mg DAILY PO 08/18/17 10:00 Vital Signs / I&O Vital Signs Date Time Temp Pulse Resp B/P (MAP) Pulse Ox O2 Delivery O2 Flow Rate FiO2 08/18/17 07:22 97.8 67 18 130/89 (103) 99 08/18/17 07:04 63 08/18/17 05:01 98.0 60 16 128/60 (82) 98 08/18/17 01:10 08/18/17 01:00 64 21 127/70 (89) 99 Room Air 08/18/17 00:51 18 08/18/17 00:23 98 08/18/17 00:00 70 28 133/84 (100) 99 Room Air 08/17/17 22:37 98.0 70 20 164/102 (122) 98 Physical Exam Well-nourished well-developed lady in no acute distress sitting at bedside Tattoos are noted but otherwise skin unremarkable Neck supple no JVD masses nodes or bruits Chest is clear to auscultation with no rales wheezes or rhonchi Regular sinus rhythm with no gallops rubs or murmurs Laboratory Laboratory Tests Test 08/17/17 23:10 08/18/17 02:03 08/18/17 05:33 White Blood Count 7.4 TH/MM3 Red Blood Count 4.63 MIL/MM3 Hemoglobin 12.5 GM/DL Hematocrit 37.8 % Mean Corpuscular Volume 81.7 FL Mean Corpuscular Hemoglobin 27.1 PG Mean Corpuscular Hemoglobin Concent 33.1 % Red Cell Distribution Width 15.2 % Platelet Count 285 TH/MM3 Mean Platelet Volume 8.3 FL Neutrophils (%) (Auto) 47.8 % Lymphocytes (%) (Auto) 41.7 % Monocytes (%) (Auto) 7.8 % Eosinophils (%) (Auto) 2.2 % Basophils (%) (Auto) 0.5 % Neutrophils # (Auto) 3.5 TH/MM3 Lymphocytes # (Auto) 3.1 TH/MM3 Monocytes # (Auto) 0.6 TH/MM3 Eosinophils # (Auto) 0.2 TH/MM3 Basophils # (Auto) 0.0 TH/MM3 CBC Comment DIFF FINAL Differential Comment Prothrombin Time 9.7 SEC Prothromb Time International Ratio 1.0 RATIO Activated Partial Thromboplast Time 25.6 SEC Blood Urea Nitrogen 11 MG/DL Creatinine 0.88 MG/DL Random Glucose 95 MG/DL Total Protein 7.7 GM/DL Albumin 3.5 GM/DL Calcium Level 8.5 MG/DL Magnesium Level 2.4 MG/DL Alkaline Phosphatase 98 U/L Aspartate Amino Transf (AST/SGOT) 13 U/L Alanine Aminotransferase (ALT/SGPT) 21 U/L Total Bilirubin 0.2 MG/DL Sodium Level 140 MEQ/L Potassium Level 3.2 MEQ/L Chloride Level 104 MEQ/L Carbon Dioxide Level 28.9 MEQ/L Anion Gap 7 MEQ/L Estimat Glomerular Filtration Rate 82 ML/MIN Total Creatine Kinase 132 U/L 101 U/L 116 U/L Creatine Kinase MB LESS THAN 0.5 NG/ML 0.7 NG/ML 0.6 NG/ML Troponin I LESS THAN 0.02 NG/ML LESS THAN 0.02 NG/ML LESS THAN 0.02 NG/ML Lipase 175 U/L Imaging Last 24 hours Impressions Chest X-Ray 08/17/17 [id number] Signed Impressions: Service Date/Time: August 22:55 - CONCLUSION: Mild cardiac silhouette enlargement unchanged. No acute findings. Simón Link MD Assessment and Plan Assessment and Plan Patient's recent heart cath showed large tortuous vessels with no significant disease effectively ruling out ischemic heart disease as a cause of her current pain. She does a good bit of physical work with her upper extremities most likely cause of pain is musculoskeletal although she also has some mild GI complaints so the possibility of GI etiology is also entertained. She is instructed to follow conservative therapy over the next few days and if the discomfort does not resolve follow-up with her primary care physician Dr. Cruz. Discussed Condition With Condition was discussed with the patient Parvez Crane MD Aug 18, 2017 10:05
--- NOTE | 2017-08-18 15:08 | EKG ---
Date Performed: 08/18/2017 Time Performed: 05:25:27 PTAGE: 52 years EKG: Sinus rhythm LEFT VENTRICULAR HYPERTROPHY AND ST-T CHANGE ABNORMAL ECG WARNING: DATA QUALITY MAY AFFECT INTERPRET ATION No significant change PREVIOUS TRACING : 08/18/2017 02.17 DOCTOR: Parvez Crane Interpretating Date/Time 08/18/2017 15:07:04
--- NOTE | 2017-08-18 15:09 | EKG ---
Date Performed: 08/18/2017 Time Performed: 02:17:56 PTAGE: 52 years EKG: Sinus rhythm LEFT VENTRICULAR HYPERTROPHY AND ST-T CHANGE ABNORMAL ECG No significant change PREVIOUS TRACING : 08/17/2017 22.51 DOCTOR: Parvez Crane Interpretating Date/Time 08/18/2017 15:08:38
--- NOTE | 2017-08-18 15:10 | EKG ---
Date Performed: 08/17/2017 Time Performed: 22:51:54 PTAGE: 52 years EKG: Sinus rhythm LEFT VENTRICULAR HYPERTROPHY AND ST-T CHANGE ABNORMAL ECG No change PREVIOUS TRACING : 11/07/2016 18.19 DOCTOR: Parvez Crane Interpretating Date/Time 08/18/2017 15:09:31
== END 2017-08-18 14:59 | disposition home or self-care (01) ==
LOC: NEPC 22:03 → NEDA 08-18 00:22 → NEPFCDU 08-18 01:14
PROVIDERS: ADMIT Internal Medicine Interventional Cardiology; ATTEND Internal Medicine Interventional Cardiology
DX: R07.89 Other chest pain (principal); I11.9 Hypertensive heart disease without heart failure; R94.31 Abnormal electrocardiogram [ECG] [EKG]; K21.9 Gastro-esophageal reflux disease without esophagitis; F17.210 Nicotine dependence, cigarettes, uncomplicated; Z79.899 Other long term (current) drug therapy
CPT/HCPCS: 71045; 80053; 82550; 82552; 83690; 83735; 84484; 85025; 85610; 85730; 93005; 99285; G0378